=== PATIENT | male | born 1995 | race Caucasian/White ===

== ENCOUNTER 2018-01-27 | Emergency (ER) | payer OTHER, SELFPAY ==
--- NOTE | 2018-01-27 12:39 | ER ---
Nurse's Notes [facility] Name: Fidel Sy Age: 22 yrs Sex: Male : 1995 Arrival Date: 01/27/2018 Time: 12:22 Bed 8 Private MD: Diagnosis: Anxiety disorder, unspecified;Depression Presentation: 01/27 12:25 Presenting complaint: Patient states: Patient reports feeling suicidal when he was aj arrested this AM. Patient was released from [facility] and transported to this facility. Currently denies suicidal or homicidal ideation. Patient denies urge to harm himself or others. Stated, "I feel better since they let me out of [facility].". Transition of care: patient was not received from another setting of care. Onset of symptoms was January 27, 2018. Care prior to arrival: None. 12:25 Method Of Arrival: EMS: [facility] aj 12:25 Acuity: NIKA 2 aj Triage Assessment: 12:27 General: Appears in no apparent distress. comfortable, Behavior is calm, cooperative, aj appropriate for age. Pain: Denies pain. Neuro: Level of Consciousness is awake, alert, obeys commands, Oriented to person, place, time, situation. Respiratory: Airway is patent Trachea midline Respiratory effort is even, unlabored, Respiratory pattern is regular, symmetrical. Derm: Skin is intact, is healthy with good turgor, Skin is pink, warm \\T\\ dry. normal. Historical: - Allergies: 12:27 No Known Allergies; aj - Home Meds: 12:27 unknown muscle relaxer [Active]; aj - PMHx: 12:27 Atrial Fib; Back pain; Ulcers; aj - PSHx: 12:27 Right hand surgery; aj - Immunization history:: Adult Immunizations unknown. - Social history:: Smoking status: Patient uses tobacco products, smokes one-half pack cigarettes per day, smokes one pack cigarettes per day. Screenin:46 Abuse screen: Denies threats or abuse. Denies injuries from another. Nutritional ss screening: No deficits noted. Tuberculosis screening: Never had TB. Fall Risk None identified. Assessment: 12:46 Reassessment: Patient appears in no apparent distress at this time. Family at bedside, ss pt denies suicidal/ homicidal ideations at this time. Neuro: Level of Consciousness is awake, alert. Respiratory: Airway is patent Respiratory effort is even, unlabored, Respiratory pattern is regular, symmetrical. Psych: 12:29 Subjective: Patient's mood is sad, Delusions are denied, Hallucinations are denied aj Having thoughts of Denies suicidal or homicidal ideations at this time. Objective: Patient is cooperative, Speech is normal, Affect is appropriate. Vital Signs: 12:27 BP 131 / 74; Pulse 80; Resp 17; Temp 98.2; Pulse Ox 98% on R/A; Weight 52.16 kg; Height aj 5 ft. 6 in. (167.64 cm); Pain 0/10; 12:27 Body Mass Index 18.56 (52.16 kg, 167.64 cm) ED Course: 12:22 Patient arrived in ED. ss 12:24 Jhon Jennings PA is PHCP. jr8 12:24 Raymond Ott MD is Attending Physician. jr8 12:25 Candida Qureshi, RN is Primary Nurse. aj 12:27 Triage completed. aj 12:27 Arm band placed on left wrist. Patient placed in an exam room, on a stretcher. aj 12:30 Valentine Rocha, RN is Primary Nurse. aj1 12:46 Patient has correct armband on for positive identification. Bed in low position. ss 12:46 No provider procedures requiring assistance completed. Patient did not have IV access ss during this emergency room visit. Administered Medications: No medications were administered Outcome: 12:38 Discharge ordered by . jr8 12:46 Discharged to home ambulatory, with family. ss 12:46 Condition: good 12:46 Discharge instructions given to patient, Instructed on discharge instructions, follow up and referral plans. medication usage, Demonstrated understanding of instructions, follow-up care, medications. 12:49 Patient left the ED. ss Signatures: Valentine Rocha, RN RN aj1 Candida Qureshi RN RN aj Ana Amaya RN RN Jhon Jennings PA PA jr8
--- NOTE | 2018-01-27 12:39 | EDPHYS ---
Physician Documentation [facility] Name: Fidel Sy Age: 22 yrs Sex: Male : 1995 Arrival Date: 01/27/2018 Time: 12:22 Bed 8 Private MD: ED Physician Raymond Ott HPI: 01/27 12:32 This 22 yrs old Male presents to ER via EMS with complaints of anxiety. jr8 12:32 The patient presents to the emergency department with anxiety. Onset: The jr8 symptoms/episode began/occurred acutely, today. Associated signs and symptoms: The patient has no apparent associated signs or symptoms. Severity of symptoms: At their worst the symptoms were mild in the emergency department the symptoms are unchanged. The patient has not experienced similar symptoms in the past. The patient has not recently seen a physician. Patient stated that he was arrested for warrants today. Stated that he has been having marital problems and has been trying to work on that. Due to his current ongoing problems felt that he hit an all time low and was worried that if he were to go to shelter would just give up on everything. EMS was called out after he said he would rather kill himself then be put in shelter. [facility] decided to release patient for evaluation. Patient was then brought to ED. Patient denies wanting to kill himself. Stated that he said that because he was at a low point and did not know what he would do if he lost his , child, and went to shelter . Historical: - Allergies: 12:27 No Known Allergies; aj - Home Meds: 12:27 unknown muscle relaxer [Active]; aj - PMHx: 12:27 Atrial Fib; Back pain; Ulcers; - PSHx: 12:27 Right hand surgery; aj - Immunization history:: Adult Immunizations unknown. - Social history:: Smoking status: Patient uses tobacco products, smokes one-half pack cigarettes per day, smokes one pack cigarettes per day. ROS: 12:32 Eyes: Negative for injury, pain, redness, and discharge, ENT: Negative for injury, jr8 pain, and discharge, Neck: Negative for injury, pain, and swelling, Cardiovascular: Negative for chest pain, palpitations, and edema, Respiratory: Negative for shortness of breath, cough, wheezing, and pleuritic chest pain, Abdomen/GI: Negative for abdominal pain, nausea, vomiting, diarrhea, and constipation, Back: Negative for injury and pain, MS/Extremity: Negative for injury and deformity, Skin: Negative for injury, rash, and discoloration, Neuro: Negative for headache, weakness, numbness, tingling, and seizure. 12:32 Psych: Positive for anxiety, depression. Exam: 12:32 Head/Face: Normocephalic, atraumatic. Eyes: Pupils equal round and reactive to light, jr8 extra-ocular motions intact. Lids and lashes normal. Conjunctiva and sclera are non-icteric and not injected. Cornea within normal limits. Periorbital areas with no swelling, redness, or edema. ENT: Nares patent. No nasal discharge, no septal abnormalities noted. Tympanic membranes are normal and external auditory canals are clear. Oropharynx with no redness, swelling, or masses, exudates, or evidence of obstruction, uvula midline. Mucous membranes moist. Neck: Trachea midline, no thyromegaly or masses palpated, and no cervical lymphadenopathy. Supple, full range of motion without nuchal rigidity, or vertebral point tenderness. No Meningismus. Cardiovascular: Regular rate and rhythm with a normal S1 and S2. No gallops, murmurs, or rubs. Normal PMI, no JVD. No pulse deficits. Respiratory: Lungs have equal breath sounds bilaterally, clear to auscultation and percussion. No rales, rhonchi or wheezes noted. No increased work of breathing, no retractions or nasal flaring. Abdomen/GI: Soft, non-tender, with normal bowel sounds. No distension or tympany. No guarding or rebound. No evidence of tenderness throughout. Back: No spinal tenderness. No costovertebral tenderness. Full range of motion. Skin: Warm, dry with normal turgor. Normal color with no rashes, no lesions, and no evidence of cellulitis. MS/ Extremity: Pulses equal, no cyanosis. Neurovascular intact. Full, normal range of motion. Neuro: Awake and alert, GCS 15, oriented to person, place, time, and situation. Cranial nerves II-XII grossly intact. Motor strength 5/5 in all extremities. Sensory grossly intact. Cerebellar exam normal. Normal gait. 12:32 Psych: Behavior/mood is cooperative, anxious, Affect is calm, Oriented to person, place, time, Patient has no thoughts/intents to harm self or others. Judgement / Insight is normal. Memory is normal. Delusions/hallucinations are not present. Vital Signs: 12:27 BP 131 / 74; Pulse 80; Resp 17; Temp 98.2; Pulse Ox 98% on R/A; Weight 52.16 kg; Height aj 5 ft. 6 in. (167.64 cm); Pain 0/10; 12:27 Body Mass Index 18.56 (52.16 kg, 167.64 cm) aj MDM: 12:24 Patient medically screened. jr8 12:32 Data reviewed: vital signs, nurses notes, and as a result, I will discharge patient. jr8 Data interpreted: Pulse oximetry: on room air is 98 %. Interpretation: normal. Counseling: I had a detailed discussion with the patient and/or guardian regarding: the historical points, exam findings, and any diagnostic results supporting the discharge/admit diagnosis, the need for outpatient follow up, a family practitioner, to return to the emergency department if symptoms worsen or persist or if there are any questions or concerns that arise at home. ED course: Patient denies wanting to kill himself. Stated that it would be the worse thing to do to himself and that his other siblings committed suicide and that he could not do that to his mom or his or child. Stated that he just wants to go home and get his life straight again . Administered Medications: No medications were administered Disposition: 01/28 07:14 Co-signature as Attending Physician, Raymond Ott MD. ma2 Disposition: 01/27/18 12:38 Discharged to Home. Impression: Anxiety disorder, unspecified, Depression . - Condition is Stable. - Discharge Instructions: Panic Attacks, Depression, Adult. - Medication Reconciliation Form, Thank You Letter, Antibiotic Education, Prescription Opioid Use form. - Follow up: Private Physician; When: 1 - 2 days; Reason: Recheck today's complaints, Continuance of care, Re-evaluation by your physician. - Problem is new. - Symptoms have improved. Signatures: Candida Qureshi RN RN aj Smirch, Shelby, RN RN ss Roszak, Josh, PA PA jr8 Raymond Ott MD MD ma2
== END 2018-01-27 12:49 | disposition home or self-care (01) ==
CPT/HCPCS: 99283

== ENCOUNTER 2018-02-03 18:36 | Emergency (ER) | payer SELFPAY ==
[2018-02-03 19:10] LABS: Absolute Lymphocytes (CBC) 2.9 K/uL (0.7-4.9); Absolute Monocytes 0.8 K/uL (0.1-1.3); Absolute Neutrophil 2.7 K/uL (1.8-8.0); Basophils % 0.9 % (0-1.3); Eosinophils % 3.4 % (0-4.4); Hematocrit 43.5 % (39.6-49.0); Lymphocytes % 43.3 % (15.3-44.8); MCH 30.6 pg (27.0-35.0); MPV 10.2 fL (7.6-11.3); Monocytes % 11.7 % (3.3-12.3); RBC Red Blood Cell Count 4.68 M/uL (4.33-5.43)
[2018-02-03 19:28] LABS: Potassium 3.5 mEq/L (3.6-5.0)
[2018-02-03 19:35] LABS: Albumin 4.9 g/dL (3.2-5.5); Bilirubin Direct 0.2 mg/dL (0-0.2); Bilirubin Total 0.8 mg/dL (0.3-1.2); Magnesium 2.2 mg/dL (1.8-2.5); Protein, Total 7.5 g/dL (6.0-8.3)
[2018-02-03 19:38] LABS: Protime INR 1.08
[2018-02-03] MEDS ORDERED: ONDANSETRON 4 MG/2 ML VIAL ONE (19:40)
[2018-02-03] MEDS ORDERED: DIPHENHYDRAMINE 50 MG/ML VIAL ONE (19:40)
[2018-02-03] MEDS ORDERED: PANTOPRAZOLE 40 MG INJ ONE (19:40)
[2018-02-03] MEDS ORDERED: NA CHLORIDE 0.9% 1,000 ML ONE (19:40)
[2018-02-03 19:56] LABS: Barbiturates NEGATIVE; Benzodiazepines NEGATIVE; Cocaine NEGATIVE; Opiates NEGATIVE; Phencyclidine NEGATIVE; THC Cannibis POSITIVE
[2018-02-03 19:57] LABS: METHAMPHETAM POSITIVE
[2018-02-03] MEDS ORDERED: POTASSIUM 25 MEQ EFFERV TAB ONE (20:50)
[2018-02-03] MEDS ORDERED: ACETAMINOPHEN 500 MG TAB ONE (20:55)
[2018-02-03] MEDS ORDERED: ASPIRIN 81 MG CHEWABLE TABLET ONE (20:55)
--- NOTE | 2018-02-03 21:27 | RAD REPORT ---
EXAM DESCRIPTION: [facility] Single View02/03/2018 8:12 pm CLINICAL HISTORY: Chest pain COMPARISON: 2016 FINDINGS: The lungs appear clear of acute infiltrate. The heart is normal size IMPRESSION: No acute abnormalities displayed
--- NOTE | 2018-02-03 22:11 | ER ---
Nurse's Notes [facility] Name: Fidel Sy Age: 22 yrs Sex: Male : 1995 Arrival Date: 02/03/2018 Time: 18:38 Bed 15 Private MD: Diagnosis: Chest pain, unspecified;Adverse effect of amphetamines Presentation: 02/03 18:41 Presenting complaint: Patient states: I have a pain like someone is stabbing my chest la1 and in now my left shoulder and arm, it has been getting worse over the course of the last couple days. Transition of care: patient was not received from another setting of care. Onset of symptoms was February 03, 2018. Care prior to arrival: None. 18:41 Method Of Arrival: Ambulatory la1 18:41 Acuity: NIKA 3 la1 Historical: - Allergies: 18:43 No Known Allergies; la1 - PMHx: 18:43 Atrial Fib; Back pain; Ulcers; la1 - Immunization history:: Adult Immunizations up to date. - Social history:: Smoking status: Patient uses tobacco products, smokes one pack cigarettes per day. Screenin:05 Abuse screen: Denies threats or abuse. Denies injuries from another. Nutritional aa1 screening: No deficits noted. Tuberculosis screening: No symptoms or risk factors identified. Fall Risk None identified. Assessment: 19:05 General: Appears in no apparent distress. uncomfortable, slender, Behavior is calm, aa1 cooperative, appropriate for age. Pain: Complains of pain in chest Pain does not radiate. Pain currently is 10 out of 10 on a pain scale. Quality of pain is described as stabbing, Pain began 2-3 days ago. Neuro: Level of Consciousness is awake, alert, obeys commands, Oriented to person, place, time, situation, Moves all extremities. Speech is normal, Facial symmetry appears normal, Reports paresthesias in face, right arm and left arm. Cardiovascular: Reports chest pain, Denies nausea, palpitations, shortness of breath, Heart tones S1 S2 present Capillary refill < 3 seconds Clubbing of nail beds is absent Patient's skin is warm and dry. Rhythm is regular Chest pain is described as severe, quality is stabbing, is located in substernal area. Respiratory: Airway is patent Respiratory effort is even, unlabored, Respiratory pattern is regular, symmetrical. GI: No signs and/or symptoms were reported involving the gastrointestinal system. : No signs and/or symptoms were reported regarding the genitourinary system. EENT: No signs and/or symptoms were reported regarding the EENT system. Derm: Skin is intact, is healthy with good turgor, Skin is pink, warm \T\ dry. Musculoskeletal: Circulation, motion, and sensation intact. Capillary refill < 3 seconds. 19:58 Reassessment: Patient appears in no apparent distress at this time. Patient and/or aa1 family updated on plan of care and expected duration. Pain level reassessed. Patient is alert, oriented x 3, equal unlabored respirations, skin warm/dry/pink. Awaiting provider reassessment. 20:40 Reassessment: Patient appears in no apparent distress at this time. Patient and/or aa1 family updated on plan of care and expected duration. Pain level reassessed. Patient is alert, oriented x 3, equal unlabored respirations, skin warm/dry/pink. Per PA will monitor pt and repeat cardiac enzymes prior to d/c. 21:26 Reassessment: Patient appears in no apparent distress at this time. Patient and/or aa1 family updated on plan of care and expected duration. Pain level reassessed. Patient is alert, oriented x 3, equal unlabored respirations, skin warm/dry/pink. Repeat troponin sent. 22:23 Reassessment: Patient appears in no apparent distress at this time. Patient is alert, aa1 oriented x 3, equal unlabored respirations, skin warm/dry/pink. Discussed d/c \T\ f/u instructions with pt; denies questions or concerns at this time Patient states feeling better. Patient states symptoms have improved. Vital Signs: 18:42 BP 122 / 83; Pulse 115; Resp 20; Temp 98.2(TE); Pulse Ox 100% on R/A; Weight 56.7 kg; la1 Height 5 ft. 7 in. (170.18 cm); 19:19 BP 144 / 87; Pulse 89; Resp 16; Pulse Ox 100% on R/A; aa1 19:58 BP 128 / 85; Pulse 77; Resp 14; Pulse Ox 100% on R/A; aa1 21:26 BP 119 / 82; Pulse 84; Resp 14; Pulse Ox 100% on R/A; aa1 22:23 BP 126 / 86; Pulse 79; Resp 16; Temp 98.2; Pulse Ox 100% on R/A; Pain 5/10; aa1 18:42 Body Mass Index 19.58 (56.70 kg, 170.18 cm) la1 ED Course: 18:38 Patient arrived in ED. as 18:42 Triage completed. la1 18:42 Arm band placed on left wrist. la1 18:43 [facility] cp 18:43 Deshawn Robles MD is Attending Physician. cp 19:01 Inserted saline lock: 20 gauge in right forearm, using aseptic technique. Blood ss collected. 19:05 Patient has correct armband on for positive identification. Bed in low position. Call aa1 light in reach. youth nutritional monitor on. Pulse ox on. NIBP on. 19:05 Patient maintains SpO2 saturation greater than 95% on room air. aa1 19:06 EKG done, by ED staff, reviewed by Jordi HARVEY. dh3 19:08 Dave Mora MD is Attending Physician. cp 19:12 X-ray completed. Portable x-ray completed in exam room. Patient tolerated procedure ag1 well. 19:18 Asha Hou, RN is Primary Nurse. aa1 19:44 UDS Sent. aa1 21:20 Repeat lab(s) drawn. by me, sent to lab. aa1 22:10 Robb Sosa MD is Referral Physician. cp 22:23 No provider procedures requiring assistance completed. IV discontinued, intact, aa1 bleeding controlled, No redness/swelling at site. Pressure dressing applied. Administered Medications: 19:35 Drug: NS 0.9% 1000 ml Route: IV; Rate: 1 bolus; Site: right antecubital; aa1 21:00 Follow up: IV Status: Completed infusion aa1 19:35 Drug: ProTONIX 40 mg Route: IVP; Site: right antecubital; aa1 20:39 Follow up: Response: No adverse reaction; No change in condition aa1 19:37 Drug: Zofran 4 mg Route: IVP; Site: right antecubital; aa1 20:39 Follow up: Response: No adverse reaction; No change in condition; No change in aa1 condition; denies nausea 19:39 Drug: Benadryl 25 mg Route: IVP; Site: right antecubital; aa1 20:40 Follow up: Response: No adverse reaction; No change in condition aa1 20:38 Drug: Potassium Effervescent Tablet 25 mEq Route: PO; aa1 22:15 Follow up: Response: No adverse reaction; Pain is decreased aa1 20:38 Drug: Tylenol 1000 mg Route: PO; aa1 22:15 Follow up: Response: No adverse reaction; Pain is decreased aa1 20:39 Drug: Aspirin Chewable Tablet 324 mg Route: PO; aa1 22:14 Follow up: Response: No adverse reaction aa1 Outcome: 22:11 Discharge ordered by MD. cp 22:25 Discharged to home ambulatory, with significant other. aa1 22:25 Condition: good 22:25 Discharge instructions given to patient, significant other, Instructed on discharge instructions, follow up and referral plans. medication usage, Demonstrated understanding of instructions, follow-up care, medications, Prescriptions given X 2. 22:26 Patient left the ED. aa1 Signatures: Asha Hou RN RN aa1 Betsy De La Rosa Shelby, RN RN Raji Rowe RN RN la1 Ema Cruz Corey, PA PA Hansa Chance 3
--- NOTE | 2018-02-03 22:11 | EDPHYS ---
Physician Documentation [facility] Name: Fidel Sy Age: 22 yrs Sex: Male : 1995 Arrival Date: 02/03/2018 Time: 18:38 Bed 15 Private MD: ED Physician Dave Mora HPI: 02/03 18:57 This 22 yrs old Male presents to ER via Ambulatory with complaints of Chest cp Pain, Arm Pain. Historical: - Allergies: 18:43 No Known Allergies; la1 - PMHx: 18:43 Atrial Fib; Back pain; Ulcers; la1 - Immunization history:: Adult Immunizations up to date. - Social history:: Smoking status: Patient uses tobacco products, smokes one pack cigarettes per day. ROS: 19:05 Constitutional: Negative for body aches, chills, fever, poor PO intake. cp 19:05 Eyes: Negative for injury, pain, redness, and discharge. cp 19:05 ENT: Negative for drainage from ear(s), ear pain, sore throat, difficulty swallowing, difficulty handling secretions. 19:05 Neck: Negative for pain with movement, pain at rest, stiffness. 19:05 Cardiovascular: Negative for chest pain, edema, palpitations. 19:05 Respiratory: Negative for cough, shortness of breath, wheezing. 19:05 Abdomen/GI: Negative for abdominal pain, nausea and vomiting, nausea, vomiting, and diarrhea, constipation, anorexia, black/tarry stool, rectal bleeding. 19:05 Back: Negative for pain at rest, pain with movement, radiated pain. 19:05 : Negative for urinary symptoms. 19:05 Skin: Negative for cellulitis, rash. 19:05 Neuro: Negative for altered mental status, headache, weakness. 19:05 All other systems are negative. Exam: 19:11 Constitutional: The patient appears alert, awake, non-diaphoretic, non-toxic, well cp developed, well nourished, uncomfortable. 19:11 Head/Face: Normocephalic, atraumatic. Eyes: Pupils equal round and reactive to light, cp extra-ocular motions intact. Lids and lashes normal. Conjunctiva and sclera are non-icteric and not injected. Cornea within normal limits. Periorbital areas with no swelling, redness, or edema. ENT: Nares patent. No nasal discharge, no septal abnormalities noted. Tympanic membranes are normal and external auditory canals are clear. Oropharynx with no redness, swelling, or masses, exudates, or evidence of obstruction, uvula midline. Mucous membranes moist. Neck: Trachea midline, no thyromegaly or masses palpated, and no cervical lymphadenopathy. Supple, full range of motion without nuchal rigidity, or vertebral point tenderness. No Meningismus. Chest/axilla: Normal chest wall appearance and motion. Nontender with no deformity. No lesions are appreciated. 19:11 Cardiovascular: Rate: tachycardic, Rhythm: regular, Pulses: Pulses are 2+ in right radial artery and left radial artery. Edema: is not appreciated, JVD: is not appreciated. 19:11 Respiratory: the patient does not display signs of respiratory distress, Respirations: normal, no use of accessory muscles, no retractions, no splinting, no tachypnea, labored breathing, is not present, Breath sounds: are clear throughout, no decreased breath sounds, no stridor, no wheezing. 19:11 Abdomen/GI: Inspection: abdomen appears normal, Bowel sounds: active, all quadrants, Palpation: soft, in all quadrants, mild abdominal tenderness, in the epigastric area, rebound tenderness, is not appreciated, voluntary guarding, is not appreciated, involuntary guarding, is not appreciated. 19:11 Back: pain, is absent, ROM is normal. 19:11 Skin: cellulitis, is not appreciated, no rash present. 19:11 Neuro: Orientation: to person, place \T\ time. Mentation: is normal, Cerebellar function: is grossly normal, Motor: moves all fours, strength is normal, Sensation: no obvious gross deficits. 19:13 ECG was reviewed by the Attending Physician. 22:05 ECG was reviewed by the Attending Physician. cp Vital Signs: 18:42 BP 122 / 83; Pulse 115; Resp 20; Temp 98.2(TE); Pulse Ox 100% on R/A; Weight 56.7 kg; la1 Height 5 ft. 7 in. (170.18 cm); 19:19 BP 144 / 87; Pulse 89; Resp 16; Pulse Ox 100% on R/A; aa1 19:58 BP 128 / 85; Pulse 77; Resp 14; Pulse Ox 100% on R/A; aa1 21:26 BP 119 / 82; Pulse 84; Resp 14; Pulse Ox 100% on R/A; aa1 22:23 BP 126 / 86; Pulse 79; Resp 16; Temp 98.2; Pulse Ox 100% on R/A; Pain 5/10; aa1 18:42 Body Mass Index 19.58 (56.70 kg, 170.18 cm) la1 MDM: 18:45 Patient medically screened. cp 22:12 Data reviewed: vital signs, nurses notes, lab test result(s), EKG, radiologic studies, cp plain films, and as a result, I will discharge patient. 22:12 Special discussion: Based on the patient's history, exam, and Dx evaluation, there is cp no indication for emergent intervention or inpatient Tx. It is understood by the patient/guardian that if the Sx's persist or worsen they need to return immediately for re-evaluation. 02/03 18:55 Order name: Basic Metabolic Panel cp 02/03 18:55 Order name: BNP cp 02/03 18:55 Order name: CBC with Diff cp 02/03 18:55 Order name: Ckmb cp 02/03 18:55 Order name: CPK cp 02/03 18:55 Order name: LFT's cp 02/03 18:55 Order name: Magnesium cp 02/03 18:55 Order name: PT-INR cp 02/03 18:55 Order name: Ptt, Activated cp 02/03 18:55 Order name: Troponin (emerg Dept Use Only) cp 02/03 18:55 Order name: Lipase cp 02/03 18:55 Order name: D-Dimer cp 02/03 18:55 Order name: UDS cp 02/03 19:27 Order name: CBC with Automated Diff; Complete Time: 20:21 EDMS 02/03 20:21 Interpretation: Normal except: ANTONIO% 40.7. cp 02/03 18:55 Order name: XRAY Chest (1 view) cp 02/03 19:29 Order name: Basic Metabolic Panel; Complete Time: 20:21 EDMS 02/03 20:22 Interpretation: Normal except: K 3.5; GFR 88. cp 02/03 19:29 Order name: Lipase; Complete Time: 20:21 EDMS 02/03 20:23 Interpretation: LIP 13; Reviewed. cp 02/03 19:34 Order name: Troponin (Emerg Dept Use Only); Complete Time: 20:21 EDMS 02/03 20:25 Interpretation: Reviewed. cp 02/03 19:35 Order name: Liver (Hepatic) Function; Complete Time: 20:21 EDMS 02/03 20:24 Interpretation: Normal except: A/G 1.9. cp 02/03 19:35 Order name: Creatine Phosphokinase; Complete Time: 20:21 EDMS 02/03 19:35 Order name: Magnesium; Complete Time: 20:21 EDMS 02/03 19:38 Order name: CKMB Creatine Kinase MB; Complete Time: 20:21 EDMS 02/03 19:39 Order name: Protime (+INR); Complete Time: 20:21 EDMS 02/03 19:39 Order name: PTT, Activated Partial Thromb; Complete Time: 20:21 EDMS 02/03 19:39 Order name: D-Dimer; Complete Time: 20:21 EDMS 02/03 19:58 Order name: Urine Drug Screen; Complete Time: 20:21 EDMS 02/03 20:24 Interpretation: Normal except: AMP POSITIVE; THC POSITIVE. cp 02/03 20:28 Order name: BNP B-Type Natriuretic Peptide; Complete Time: 20:30 EDMS 02/03 20:31 Interpretation: Report reviewed. cp 02/03 21:20 Order name: Troponin (emerg Dept Use Only) 02/03 21:54 Order name: Troponin (Emerg Dept Use Only); Complete Time: 22:12 EDMS 02/03 22:12 Interpretation: TROPED < 0.03; Reviewed. cp 02/03 18:45 Order name: EKG; Complete Time: 18:46 cp 02/03 18:45 Order name: EKG - Nurse/Tech; Complete Time: 19:06 cp 02/03 18:55 Order name: Cardiac monitoring; Complete Time: 19:19 cp 02/03 18:55 Order name: IV Saline Lock; Complete Time: 19:19 cp 02/03 18:55 Order name: Labs collected and sent; Complete Time: 19:19 cp 02/03 18:55 Order name: O2 Per Protocol; Complete Time: 19:19 cp 02/03 18:55 Order name: O2 Sat Monitoring; Complete Time: 19:19 cp 02/03 21:28 Order name: RAD; Complete Time: 21:51 EDMS 02/03 21:51 Interpretation: Report reviewed. cp 02/03 21:54 Order name: EKG - Nurse/Tech; Complete Time: 22:13 cp 02/03 21:54 Order name: EKG; Complete Time: 21:55 cp EC:13 Rate is 111 beats/min. Rhythm is regular. KS interval is normal. QRS interval is cp normal. QT interval is normal. No ST changes noted. Interpreted by me. Reviewed by me. 22:05 Rate is 95 beats/min. Rhythm is regular. KS interval is normal. QRS interval is normal. cp QT interval is normal. No ST changes noted. Interpreted by me. Reviewed by me. Administered Medications: 19:35 Drug: NS 0.9% 1000 ml Route: IV; Rate: 1 bolus; Site: right antecubital; aa1 21:00 Follow up: IV Status: Completed infusion aa1 19:35 Drug: ProTONIX 40 mg Route: IVP; Site: right antecubital; aa1 20:39 Follow up: Response: No adverse reaction; No change in condition aa1 19:37 Drug: Zofran 4 mg Route: IVP; Site: right antecubital; aa1 20:39 Follow up: Response: No adverse reaction; No change in condition; No change in aa1 condition; denies nausea 19:39 Drug: Benadryl 25 mg Route: IVP; Site: right antecubital; aa1 20:40 Follow up: Response: No adverse reaction; No change in condition aa1 20:38 Drug: Potassium Effervescent Tablet 25 mEq Route: PO; aa1 22:15 Follow up: Response: No adverse reaction; Pain is decreased aa1 20:38 Drug: Tylenol 1000 mg Route: PO; aa1 22:15 Follow up: Response: No adverse reaction; Pain is decreased aa1 20:39 Drug: Aspirin Chewable Tablet 324 mg Route: PO; aa1 22:14 Follow up: Response: No adverse reaction aa1 Disposition: 02/03/18 22:11 Discharged to Home. Impression: Chest pain, unspecified, Adverse effect of amphetamines. - Condition is Stable. - Discharge Instructions: Stimulant Use Disorder-Amphetamines, Nonspecific Chest Pain, Marijuana Abuse-Brief, Aspirin and Your Heart. - Prescriptions for Ibuprofen 800 mg Oral Tablet - take 1 tablet by ORAL route every 8 hours As needed take with food; 30 tablet. Zofran 4 mg Oral Tablet - take 1 tablet by ORAL route every 12 hours As needed; 20 tablet. - Medication Reconciliation Form, Thank You Letter, Antibiotic Education, Prescription Opioid Use form. - Follow up: Robb Sosa MD; When: 2 - 3 days; Reason: chest pain. - Problem is new. - Symptoms have improved. Addendum: 02/07/2018 07:07 Co-signature as Attending Physician, Dave Mora MD I agree with the assessment and w a plan of care. Signatures: Dispatcher [employer] EDMS Asha Hou RN RN aa1 Raji Rowe RN RN la1 Jordi Bolanos, PA PA atnia Mora, MD MD dino Acosta Corrections: (The following items were deleted from the chart) 02/03 22:13 21:54 Repeat Cardiac Enzymes at ordered. aa1 22:16 18:55 Urine Dipstick-Ancillary ordered. cp aa1
[2018-02-03 22:32] VITALS: TEMP 98.2; O2SAT 100
[2018-02-03 22:36] VITALS: BP 126/86
--- NOTE | 2018-02-04 07:22 | EKG ---
Test Date: 2018-02-03 Test Time: 22:01:59 Licensed Weigher: [employer] MEASUREMENT RESULTS: Intervals: Rate: 95 IN: 136 QRSD: 92 QT: 354 QTc: 444 [place]: P: 81 IN: 136 QRS: 86 T: 76 INTERPRETIVE STATEMENTS: Normal sinus rhythm Possible Left atrial enlargement Incomplete right bundle branch block Borderline ECG Compared to ECG 02/03/2018 19:00:08 Sinus tachycardia no longer present Electronically Signed On 02-04-18 07:21:31 CDT by Robb Sosa
--- NOTE | 2018-02-04 07:23 | EKG ---
Test Date: 2018-02-03 Test Time: 19:00:08 Fee Clerk: MERA MEASUREMENT RESULTS: Intervals: Rate: 111 SC: 136 QRSD: 92 QT: 326 QTc: 443 [place]: P: 74 SC: 136 QRS: 85 T: 66 INTERPRETIVE STATEMENTS: Sinus tachycardia Possible Left atrial enlargement Incomplete right bundle branch block Borderline ECG Compared to ECG 08/22/2017 11:38:37 Incomplete right bundle-branch block now present Sinus bradycardia no longer present Electronically Signed On 02-04-18 07:21:47 CDT by Robb Sosa
== END 2018-02-03 22:26 | disposition home or self-care (01) ==
LOC: ER 18:36
DX: T43.625A Adverse effect of amphetamines, initial encounter (principal); F17.210 Nicotine dependence, cigarettes, uncomplicated
CPT/HCPCS: 36415; 71045; 80048; 80076; 80307; 82550; 82553; 83690; 83735; 83880; 84484; 85025; 85379; 85610; 85730; 93005; 96361; 96374; 96375; 99285; C9113; J2405; J7030

== ENCOUNTER 2018-06-04 23:40 | Emergency (ER) | payer SELFPAY ==
--- NOTE | 2018-06-05 01:37 | EDPHYS ---
Physician Documentation [facility] Name: Fidel Sy Age: 22 yrs Sex: Male : 1995 Arrival Date: 06/04/2018 Time: 23:41 Bed 7 Private MD: ED Physician Tonio Denise HPI: 06/05 01:25 This 22 yrs old Male presents to ER via Ambulatory with complaints of Neck gs and Upper Back Pain, Shoulder Pain. 01:25 The patient or guardian complains of an injury, pain. The symptoms are located at the gs C4 and C5. Onset: The symptoms/episode began/occurred acutely, just prior to arrival. Context: The problem was sustained at home, The neck injury/problem resulted from WRESTLING WITH FRIEND. Associated signs and symptoms: Pertinent negatives: bladder incontinence, bowel incontinence, numbness. The pain does not radiate. Modifying factors: the symptoms are aggravated by movement. Severity of symptoms: At their worst the symptoms were moderate, in the emergency department the symptoms are unchanged. The patient has not experienced similar symptoms in the past. Historical: - Allergies: 00:00 No Known Allergies; bb - Home Meds: 00:00 None [Active]; bb - PMHx: 00:00 None; bb - PSHx: 00:00 cyst removal right hand; bb - Immunization history:: Adult Immunizations up to date. - Social history:: Smoking status: Patient uses tobacco products, smokes one-half pack cigarettes per day, Patient/guardian denies using alcohol, street drugs. - Ebola Screening: : No symptoms or risks identified at this time. ROS: 01:25 All other systems are negative. gs Exam: 01:25 Head/Face: Normocephalic, atraumatic. Eyes: Pupils equal round and reactive to light, gs extra-ocular motions intact. Lids and lashes normal. Conjunctiva and sclera are non-icteric and not injected. Cornea within normal limits. Periorbital areas with no swelling, redness, or edema. ENT: Nares patent. No nasal discharge, no septal abnormalities noted. Tympanic membranes are normal and external auditory canals are clear. Oropharynx with no redness, swelling, or masses, exudates, or evidence of obstruction, uvula midline. Mucous membranes moist. Chest/axilla: Normal chest wall appearance and motion. Nontender with no deformity. No lesions are appreciated. Cardiovascular: Regular rate and rhythm with a normal S1 and S2. No gallops, murmurs, or rubs. Normal PMI, no JVD. No pulse deficits. Respiratory: Lungs have equal breath sounds bilaterally, clear to auscultation and percussion. No rales, rhonchi or wheezes noted. No increased work of breathing, no retractions or nasal flaring. Abdomen/GI: Soft, non-tender, with normal bowel sounds. No distension or tympany. No guarding or rebound. No evidence of tenderness throughout. Back: No spinal tenderness. No costovertebral tenderness. Full range of motion. Skin: Warm, dry with normal turgor. Normal color with no rashes, no lesions, and no evidence of cellulitis. Neuro: Awake and alert, GCS 15, oriented to person, place, time, and situation. Cranial nerves II-XII grossly intact. Motor strength 5/5 in all extremities. Sensory grossly intact. Cerebellar exam normal. Normal gait. 01:25 Constitutional: The patient appears alert, awake. 01:25 Neck: External neck: tenderness, that is mild, C-spine: vertebral tenderness, that is mild, appreciated at C4 and C5, ROM/movement: pain, that is mild, with rotation to the left, nuchal rigidity, is not appreciated. 01:25 Musculoskeletal/extremity: ROM: intact in all extremities, Circulation is intact in all extremities. Joints: the left shoulder displays NO POINT TENDERNESS, FULL ROM. Vital Signs: 00:00 BP 145 / 84; Pulse 93; Resp 18 S; Temp 98.6(O); Pulse Ox 100% on R/A; Weight 61.23 kg bb (R); Height 5 ft. 6 in. (167.64 cm) (R); Pain 8/10; 00:15 BP 123 / 58; Pulse 72; Resp 14; Pulse Ox 99% ; bp 01:30 BP 112 / 69; Pulse 63; Resp 14; Pulse Ox 99% ; bp 00:00 Body Mass Index 21.79 (61.23 kg, 167.64 cm) bb MDM: 06/04 23:54 Patient medically screened. 06/05 01:25 Differential diagnosis: cervical strain, fracture, Whiplash Injury. Data reviewed: vital signs, nurses notes. Response to treatment: the patient's symptoms have mildly improved after treatment, and as a result, I will discharge patient. 06/04 23:56 Order name: CT C Spine gs Administered Medications: No medications were administered Disposition: 06/05/18 01:37 Discharged to Home. Impression: Sprain of ligaments of cervical spine. - Condition is Stable. - Discharge Instructions: Cervical Sprain. - Prescriptions for Naprosyn 500 mg Oral Tablet - take 1 tablet by ORAL route 2 times per day As needed take with food; 30 tablet. - Medication Reconciliation Form, Thank You Letter, Antibiotic Education, Prescription Opioid Use form. - Follow up: Private Physician; When: 2 - 3 days; Reason: Re-evaluation by your physician. Signatures: Dispatcher [employer] EDMS Irene Almanzar RN RN Tonio Brooks MD MD gs Peltier, Brian, RN RN bp Corrections: (The following items were deleted from the chart) 01:46 01:37 06/05/2018 01:37 Discharged to Home. Impression: Sprain of ligaments of cervical bp spine. Condition is Stable. Forms are Medication Reconciliation Form, Thank You Letter, Antibiotic Education, Prescription Opioid Use. Follow up: Private Physician; When: 2 - 3 days; Reason: Re-evaluation by your physician. gs
--- NOTE | 2018-06-05 01:37 | ER ---
Nurse's Notes [facility] Name: Fidel Sy Age: 22 yrs Sex: Male : 1995 Arrival Date: 06/04/2018 Time: 23:41 Bed 7 Private MD: Diagnosis: Sprain of ligaments of cervical spine Presentation: 06/04 23:57 Presenting complaint: Patient states: he was wrestling around with his and rolled bb over then heard a loud pop in his neck at approx 1930 he is having neck pain radiating down his back and can only lemon picker his left arm partially. Transition of care: patient was not received from another setting of care. Onset of symptoms was June 04, 2018. Risk Assessment: Do you want to hurt yourself or someone else? Patient reports no desire to harm self or others. Initial Sepsis Screen: Does the patient meet any 2 criteria? No. Patient's initial sepsis screen is negative. Does the patient have a suspected source of infection? No. Patient's initial sepsis screen is negative. Care prior to arrival: None. 23:57 Method Of Arrival: Ambulatory 23:57 Acuity: NIKA 4 bb Historical: - Allergies: 06/05 00:00 No Known Allergies; bb - Home Meds: 00:00 None [Active]; bb - PMHx: 00:00 None; bb - PSHx: 00:00 cyst removal right hand; bb - Immunization history:: Adult Immunizations up to date. - Social history:: Smoking status: Patient uses tobacco products, smokes one-half pack cigarettes per day, Patient/guardian denies using alcohol, street drugs. - Ebola Screening: : No symptoms or risks identified at this time. Screenin:17 Abuse screen: Denies threats or abuse. Denies injuries from another. Nutritional bp screening: No deficits noted. Tuberculosis screening: No symptoms or risk factors identified. Fall Risk None identified. Assessment: 06/04 23:58 General: Appears in no apparent distress. Behavior is calm, cooperative. Pain: ak1 Complains of pain in back. Neuro: Level of Consciousness is awake, alert, obeys commands, Oriented to person, place, time, situation, Cutter Head Sharpener are equal bilaterally Moves all extremities. Gait is steady, Speech is normal. Cardiovascular: No deficits noted. Respiratory: No deficits noted. GI: No signs and/or symptoms were reported involving the gastrointestinal system. : No signs and/or symptoms were reported regarding the genitourinary system. EENT: No signs and/or symptoms were reported regarding the EENT system. Derm: No signs and/or symptoms reported regarding the dermatologic system. Musculoskeletal: Range of motion: intact in all extremities, Reports pain in back. 06/05 01:42 Reassessment: PT D/C HOME AMBULATORY WITH FAMILY, DX WITH CERVICAL SPRAIN. bp Vital Signs: 00:00 BP 145 / 84; Pulse 93; Resp 18 S; Temp 98.6(O); Pulse Ox 100% on R/A; Weight 61.23 kg bb (R); Height 5 ft. 6 in. (167.64 cm) (R); Pain 8/10; 00:15 BP 123 / 58; Pulse 72; Resp 14; Pulse Ox 99% ; bp 01:30 BP 112 / 69; Pulse 63; Resp 14; Pulse Ox 99% ; bp 00:00 Body Mass Index 21.79 (61.23 kg, 167.64 cm) bb ED Course: 06/04 23:41 Patient arrived in ED. ds1 23:47 Marychuy Araujo, ANNA is Primary Nurse. ak1 23:48 Tonio Denise MD is Attending Physician. gs 23:59 Triage completed. bb 06/05 00:00 Arm band placed on Patient placed in an exam room, on a stretcher, on pulse oximetry. bb Family accompanied patient. 00:17 Patient has correct armband on for positive identification. Bed in low position. Call bp light in reach. Side rails up X2. Adult w/ patient. 00:[address] via wheelchair. kw1 00:41 CT C Spine In Process Unspecified. EDMS 00:44 CT completed. Patient tolerated procedure well. Patient moved back from CT. kw1 01:43 No provider procedures requiring assistance completed. Patient did not have IV access bp during this emergency room visit. Administered Medications: No medications were administered Outcome: 01:37 Discharge ordered by MD. gs 01:43 Discharged to home ambulatory, with family. bp 01:43 Condition: stable 01:43 Discharge instructions given to patient, Instructed on discharge instructions, follow up and referral plans. medication usage, Demonstrated understanding of instructions, follow-up care, medications, Prescriptions given X 1. 01:46 Patient left the ED. bp Signatures: Dispatcher [employer] EDMS [place], Alicia ds1 Irene Almanzar RN RN bb Marychuy Araujo RN RN ak1 Tonio Denise MD MD gs Peltier, Brian, RN RN bp Darshana Rios 1
[2018-06-05 01:50] VITALS: TEMP 98.6
[2018-06-05 01:51] VITALS: O2SAT 99
[2018-06-05 01:52] VITALS: BP 112/69
--- NOTE | 2018-06-05 08:30 | RAD REPORT ---
EXAM DESCRIPTION: CT - C Spine Wo Con - 06/05/2018 4:44 am CLINICAL HISTORY: PAIN Trauma, neck injury COMPARISON: No comparisons FINDINGS: The cervical vertebral body heights and disc spaces are maintained. No evidence of acute cervical spine fracture or subluxation. Prevertebral soft tissues are normal in thickness. IMPRESSION: Negative for acute cervical spine abnormality. All CT scans are performed using dose optimization technique as appropriate and may include automated exposure control or mA/KV adjustment according to patient size.
== END 2018-06-05 01:46 | disposition home or self-care (01) ==
LOC: ER 23:40
DX: S13.4XXA Sprain of ligaments of cervical spine, initial encounter (principal); F17.210 Nicotine dependence, cigarettes, uncomplicated; Y93.72 Activity, wrestling; Y92.009 Unspecified place in unspecified non-institutional (private) residence as the place of occurrence of the external cause; Y99.9 Unspecified external cause status
CPT/HCPCS: 72125; 99284

== ENCOUNTER 2018-10-15 11:54 | Emergency (ER) | payer SELFPAY ==
--- NOTE | 2018-10-15 13:27 | EDPHYS ---
Physician Documentation [facility] Name: Fidel Sy Age: 22 yrs Sex: Male : 1995 Arrival Date: 10/15/2018 Time: 12:00 Bed Waiting Private MD: None, None ED Physician Jordi Sanchez HPI: 10/15 13:30 This 22 yrs old Male presents to ER via Ambulatory with complaints of Ear kb Pain. 13:30 The patient presents with pain, moderate. The complaints affect the left ear. Onset: kb The symptoms/episode began/occurred 3 day(s) ago. Modifying factors: The symptoms are alleviated by nothing, the symptoms are aggravated by nothing. Associated signs and symptoms: The patient has no apparent associated signs or symptoms. Severity of symptoms: At their worst the symptoms were moderate in the emergency department the symptoms are unchanged. The patient has not experienced similar symptoms in the past. The patient has not recently seen a physician. Historical: - Allergies: 12:42 No Known Allergies; la1 - PMHx: 12:42 None; la1 - Immunization history:: Adult Immunizations up to date. - Social history:: Smoking status: Patient/guardian denies using tobacco. - Ebola Screening: : No symptoms or risks identified at this time. ROS: 13:29 Constitutional: Negative for fever, chills, and weight loss, Cardiovascular: Negative kb for chest pain, palpitations, and edema, Respiratory: Negative for shortness of breath, cough, wheezing, and pleuritic chest pain, Abdomen/GI: Negative for abdominal pain, nausea, vomiting, diarrhea, and constipation, MS/Extremity: Negative for injury and deformity, Skin: Negative for injury, rash, and discoloration, Neuro: Negative for headache, weakness, numbness, tingling, and seizure. 13:29 ENT: Positive for ear pain. Exam: 13:29 Constitutional: This is a well developed, well nourished patient who is awake, alert, kb and in no acute distress. Head/Face: Normocephalic, atraumatic. Chest/axilla: Normal chest wall appearance and motion. Nontender with no deformity. No lesions are appreciated. Cardiovascular: Regular rate and rhythm with a normal S1 and S2. No gallops, murmurs, or rubs. Normal PMI, no JVD. No pulse deficits. Respiratory: Lungs have equal breath sounds bilaterally, clear to auscultation and percussion. No rales, rhonchi or wheezes noted. No increased work of breathing, no retractions or nasal flaring. Abdomen/GI: Soft, non-tender, with normal bowel sounds. No distension or tympany. No guarding or rebound. No evidence of tenderness throughout. Skin: Warm, dry with normal turgor. Normal color with no rashes, no lesions, and no evidence of cellulitis. MS/ Extremity: Pulses equal, no cyanosis. Neurovascular intact. Full, normal range of motion. Neuro: Awake and alert, GCS 15, oriented to person, place, time, and situation. Cranial nerves II-XII grossly intact. Motor strength 5/5 in all extremities. Sensory grossly intact. Cerebellar exam normal. Normal gait. 13:29 ENT: External ear(s): are unremarkable, Ear canal(s): are normal, TM's: bulging, on the left, erythema, that is moderate, bilaterally, Nose: is normal, Mouth: is normal, Posterior pharynx: is normal. Vital Signs: 12:42 BP 125 / 88; Pulse 73; Resp 16; Temp 97.3; Pulse Ox 98% on R/A; Weight 72.57 kg; Height la1 5 ft. 6 in. (167.64 cm); 12:42 Body Mass Index 25.82 (72.57 kg, 167.64 cm) la1 MDM: 13:26 Patient medically screened. kb 13:28 Data reviewed: vital signs, nurses notes. Data interpreted: Pulse oximetry: on room air kb is 98 %. Interpretation: normal. Counseling: I had a detailed discussion with the patient and/or guardian regarding: the historical points, exam findings, and any diagnostic results supporting the discharge/admit diagnosis, the need for outpatient follow up, a family practitioner, to return to the emergency department if symptoms worsen or persist or if there are any questions or concerns that arise at home. Administered Medications: No medications were administered Disposition: 10/16 07:29 Co-signature as Attending Physician, Jordi Sanchez MD I agree with the assessment and magdaleno plan of care. Disposition: 10/15/18 13:26 Discharged to Home. Impression: Otitis media, unspecified, left ear. - Condition is Stable. - Discharge Instructions: Otitis Media, Adult, [id number]. - Prescriptions for Amoxicillin 875 mg Oral Tablet - take 1 tablet by ORAL route every 12 hours for 10 days; 20 tablet. - Medication Reconciliation Form, Thank You Letter, Antibiotic Education, Prescription Opioid Use, Work release form form. - Follow up: Emergency Department; When: As needed; Reason: Worsening of condition. Follow up: Private Physician; When: 2 - 3 days; Reason: Recheck today's complaints, Continuance of care, Re-evaluation by your physician. Signatures: Nicole Ashley, FRANCIE-C PARTITION NOTCHER-Jordi Owens MD MD cha Attema, Lee, RN RN la1 Corrections: (The following items were deleted from the chart) 10/15 13:32 13:26 10/15/2018 13:26 Discharged to Home. Impression: Otitis media, unspecified, left la1 ear. Condition is Stable. Forms are Work release form, Medication Reconciliation Form, Thank You Letter, Antibiotic Education, Prescription Opioid Use. Follow up: Emergency Department; When: As needed; Reason: Worsening of condition. Follow up: Private Physician; When: 2 - 3 days; Reason: Recheck today's complaints, Continuance of care, Re-evaluation by your physician. kb
--- NOTE | 2018-10-15 13:27 | ER ---
Nurse's Notes [facility] Name: Fidel Sy Age: 22 yrs Sex: Male : 1995 Arrival Date: 10/15/2018 Time: 12:00 Bed Waiting Private MD: None, None Diagnosis: Otitis media, unspecified, left ear Presentation: 10/15 12:41 Presenting complaint: Patient states: I have been having ear pain and now I cannot hear la1 out of my left ear and can barely hear from my right ear. Transition of care: patient was not received from another setting of care. Onset of symptoms was October 15, 2018. Risk Assessment: Do you want to hurt yourself or someone else? Patient reports no desire to harm self or others. Initial Sepsis Screen: Does the patient meet any 2 criteria? No. Patient's initial sepsis screen is negative. Does the patient have a suspected source of infection? No. Patient's initial sepsis screen is negative. Care prior to arrival: None. 12:41 Method Of Arrival: Ambulatory la1 12:41 Acuity: NIKA 4 la1 Historical: - Allergies: 12:42 No Known Allergies; la1 - PMHx: 12:42 None; la1 - Immunization history:: Adult Immunizations up to date. - Social history:: Smoking status: Patient/guardian denies using tobacco. - Ebola Screening: : No symptoms or risks identified at this time. Screenin:25 Abuse screen: Denies threats or abuse. Nutritional screening: No deficits noted. la1 Tuberculosis screening: No symptoms or risk factors identified. Fall Risk None identified. Assessment: 13:24 General: Appears in no apparent distress. Behavior is calm, cooperative. Pain: la1 Complains of pain in right ear and left ear. Neuro: Level of Consciousness is awake, alert, obeys commands, Oriented to person, place, time, situation. Cardiovascular: Capillary refill < 3 seconds Patient's skin is warm and dry. Respiratory: Airway is patent Respiratory effort is even, unlabored, Respiratory pattern is regular, symmetrical. GI: No signs and/or symptoms were reported involving the gastrointestinal system. : No signs and/or symptoms were reported regarding the genitourinary system. EENT: Reports pain in right ear and left ear. Vital Signs: 12:42 BP 125 / 88; Pulse 73; Resp 16; Temp 97.3; Pulse Ox 98% on R/A; Weight 72.57 kg; Height la1 5 ft. 6 in. (167.64 cm); 12:42 Body Mass Index 25.82 (72.57 kg, 167.64 cm) la1 ED Course: 12:00 Patient arrived in ED. sb2 12:01 None, None is Private Physician. sb2 12:41 Triage completed. la1 12:42 Arm band placed on right wrist. la1 13:22 [facility] kb 13:22 Jordi Sanchez MD is Attending Physician. kb 13:25 Side rails up X 1. la1 13:25 No provider procedures requiring assistance completed. Patient did not have IV access la1 during this emergency room visit. Administered Medications: No medications were administered Outcome: 13:25 Discharged to home ambulatory. la1 13:25 Condition: stable 13:25 Discharge instructions given to patient, Instructed on discharge instructions, follow up and referral plans. medication usage, Demonstrated understanding of instructions, follow-up care, medications, Prescriptions given X 1. 13:26 Discharge ordered by . kb 13:32 Patient left the ED. la1 Signatures: Nicole Ashley FNP-C FNP-Ckb Attema, Lee RN RN la1 Maite Kat sb2
[2018-10-15 16:58] VITALS: BP 125/88; TEMP 97.3; O2SAT 98
== END 2018-10-15 13:32 | disposition home or self-care (01) ==
LOC: ER 11:54
DX: H66.92 Otitis media, unspecified, left ear (principal)
CPT/HCPCS: 99282

== ENCOUNTER 2018-11-23 20:13 | Emergency (ER) | payer SELFPAY ==
[2018-11-23] MEDS ORDERED: IBUPROFEN 200 MG TAB PO ONE (20:57)
[2018-11-23] MEDS ORDERED: HYDROCODONE/APAP 5/325 MG TAB ONE (20:57)
[2018-11-23] MEDS ORDERED: IBUPROFEN 400 MG TAB ONE (20:57)
--- NOTE | 2018-11-23 21:45 | RAD REPORT ---
EXAM DESCRIPTION: RAD - Hand Right 3 View - 11/23/2018 8:57 pm CLINICAL HISTORY: Hand pain, blunt force trauma, pain not further localized COMPARISON: None. FINDINGS: No fracture is identified. There is no dislocation or periosteal reaction noted. No air o r foreign body in the soft tissues. Soft tissue swelling over the dorsum of the hand noted. IMPRESSION: Soft tissue swelling over the dorsum of the hand. No fracture identified.
--- NOTE | 2018-11-23 21:52 | ER ---
Nurse's Notes [facility] Name: Fidel Sy Age: 23 yrs Sex: Male : 1995 Arrival Date: 11/23/2018 Time: 20:14 Bed 20 Private MD: Diagnosis: Contusion of right hand Presentation: 11/23 20:18 Presenting complaint: Patient states: Pain and bruising to right hand after closing aj right hand in car door at 0200 this AM. Transition of care: patient was not received from another setting of care. Onset of symptoms was November 23, 2018. Risk Assessment: Do you want to hurt yourself or someone else? Patient reports no desire to harm self or others. Initial Sepsis Screen: Does the patient meet any 2 criteria? No. Patient's initial sepsis screen is negative. Does the patient have a suspected source of infection? No. Patient's initial sepsis screen is negative. Care prior to arrival: None. 20:18 Method Of Arrival: Ambulatory aj 20:18 Acuity: NIKA 4 aj Triage Assessment: 20:19 General: Appears in no apparent distress. comfortable, Behavior is calm, cooperative, aj appropriate for age. Pain: Complains of pain in right hand. Neuro: Level of Consciousness is awake, alert, obeys commands, Oriented to person, place, time, situation, Appropriate for age. Respiratory: Airway is patent Respiratory effort is even, unlabored, Respiratory pattern is regular, symmetrical. Derm: Skin is intact, is healthy with good turgor, Skin is pink, warm \T\ dry. normal, Reports pain that is 6 out of 10 on a pain scale. Musculoskeletal: Reports pain in right hand. Injury Description: Crush injury sustained to right hand. Historical: - Allergies: 20:19 No Known Allergies; aj - Home Meds: 20:19 None [Active]; aj - PMHx: 20:19 None; aj - PSHx: 20:19 None; aj - Immunization history:: Adult Immunizations up to date. - Social history:: Smoking status: Patient uses tobacco products, smokes one-half pack cigarettes per day. - Ebola Screening: : Patient negative for fever greater than or equal to 101.5 degrees Fahrenheit, and additional compatible Ebola Virus Disease symptoms Patient denies exposure to infectious person Patient denies travel to an Ebola-affected area in the 21 days before illness onset No symptoms or risks identified at this time. Screenin:58 Abuse screen: Denies threats or abuse. Nutritional screening: No deficits noted. jd3 Tuberculosis screening: No symptoms or risk factors identified. Fall Risk Ambulatory Aid- None/Bed Rest/Nurse Assist (0 pts). Gait- Normal/Bed Rest/Wheelchair (0 pts) Mental Status- Oriented to own ability (0 pts). Total [place] Fall Scale indicates No Risk (0-24 pts). Assessment: 20:35 General: Appears in no apparent distress. uncomfortable, Behavior is calm, cooperative, jd3 appropriate for age. Pain: Complains of pain in right hand Quality of pain is described as aching, tender. Neuro: Level of Consciousness is awake, alert, obeys commands, Oriented to person, place, time, situation. Cardiovascular: Capillary refill < 3 seconds Patient's skin is warm and dry. Respiratory: Airway is patent Respiratory effort is even, unlabored, Respiratory pattern is regular, symmetrical. GI: No signs and/or symptoms were reported involving the gastrointestinal system. : No signs and/or symptoms were reported regarding the genitourinary system. EENT: No signs and/or symptoms were reported regarding the EENT system. Derm: Skin is intact, Skin is dry, Skin is normal, Skin temperature is warm Bruising that is dark purple, yellow, on right hand. Musculoskeletal: Circulation, motion, and sensation intact. Range of motion: limited in MCP of right middle finger, MCP of right ring finger and MCP of right little finger Swelling present in right hand. 21:18 Reassessment: Patient appears in no apparent distress at this time. Patient and/or jd3 family updated on plan of care and expected duration. Pain level reassessed. Patient is alert, oriented x 3, equal unlabored respirations, skin warm/dry/pink. Patient states feeling better. 22:52 Reassessment: Patient appears in no apparent distress at this time. Patient and/or jd3 family updated on plan of care and expected duration. Pain level reassessed. Patient is alert, oriented x 3, equal unlabored respirations, skin warm/dry/pink. pt reported understanding of discharge instructions. Vital Signs: 20:19 BP 134 / 88; Pulse 98; Resp 20; Temp 99.1; Pulse Ox 99% on R/A; Weight 74.84 kg; Height aj 5 ft. 6 in. (167.64 cm); 22:52 BP 113 / 58; Pulse 80; Resp 15 S; Pulse Ox 97% on R/A; jd3 20:19 Body Mass Index 26.63 (74.84 kg, 167.64 cm) ED Course: 20:14 Patient arrived in ED. am2 20:19 Triage completed. aj 20:19 Arm band placed on right wrist. Patient placed in an exam room. aj 20:24 Parker Art NP is PHCP. pm1 20:24 Dave Mora MD is Attending Physician. pm1 20:39 Juan Diego Dinero RN is Primary Nurse. jd3 20:59 Patient has correct armband on for positive identification. Bed in low position. Call jd3 light in reach. Side rails up X 1. Adult w/ patient. 21:01 Hand Right 3 View XRAY In Process Unspecified. EDMS 22:39 Orthoglass splint: Volar splint applied on right arm. ar5 22:52 No provider procedures requiring assistance completed. Patient did not have IV access jd3 during this emergency room visit. Administered Medications: 20:49 Drug: [place] 5 mg-325 mg 1 tabs Route: PO; jd3 21:19 Follow up: Response: No adverse reaction jd3 20:49 Drug: Ibuprofen 600 mg Route: PO; jd3 21:19 Follow up: Response: No adverse reaction jd3 Outcome: 21:51 Discharge ordered by MD. pm1 22:53 Discharged to home ambulatory, with family. jd3 22:53 Condition: stable 22:53 Discharge instructions given to patient, family, Instructed on discharge instructions, follow up and referral plans. medication usage, Demonstrated understanding of instructions, follow-up care, medications, Prescriptions given X 2. 22:54 Patient left the ED. jd3 Signatures: Dispatcher [employer] EDMS Candida Qureshi RN RN aj Marinas, Patrick, NP BOWLING PIN REFINISHER pm1 Candida Carter am2 Juan Diego Dinero RN RN jd3 Robles, Autumn ar5 Corrections: (The following items were deleted from the chart) 22:53 22:52 Reassessment: Patient appears in no apparent distress at this time. Patient jd3 and/or family updated on plan of care and expected duration. Pain level reassessed. Patient is alert, oriented x 3, equal unlabored respirations, skin warm/dry/pink. jd3
--- NOTE | 2018-11-23 21:52 | EDPHYS ---
Physician Documentation [facility] Name: Fidel Sy Age: 23 yrs Sex: Male : 1995 Arrival Date: 11/23/2018 Time: 20:14 Bed 20 Private MD: ED Physician Dave Mora HPI: 11/23 21:19 This 23 yrs old Male presents to ER via Ambulatory with complaints of Right pm1 Hand Injury. 21:19 The patient or guardian reports pain, swelling. The complaints affect the right hand. pm1 Context: The problem was sustained outdoors, resulted from a crush injury, by a car door. Onset: The symptoms/episode began/occurred this morning, at 02:00. Modifying factors: The symptoms are alleviated by nothing, the symptoms are aggravated by movement. Associated signs and symptoms: Pertinent negatives: cyanosis distally, decreased sensation distally, numbness distally, tingling distally. Severity of symptoms: in the emergency department the symptoms are unchanged. The patient has not experienced similar symptoms in the past. The patient has not recently seen a physician. Historical: - Allergies: 20:19 No Known Allergies; aj - Home Meds: 20:19 None [Active]; aj - PMHx: 20:19 None; aj - PSHx: 20:19 None; aj - Immunization history:: Adult Immunizations up to date. - Social history:: Smoking status: Patient uses tobacco products, smokes one-half pack cigarettes per day. - Ebola Screening: : Patient negative for fever greater than or equal to 101.5 degrees Fahrenheit, and additional compatible Ebola Virus Disease symptoms Patient denies exposure to infectious person Patient denies travel to an Ebola-affected area in the 21 days before illness onset No symptoms or risks identified at this time. ROS: 21:19 Constitutional: Negative for fever, chills, and weight loss, Eyes: Negative for injury, pm1 pain, redness, and discharge, ENT: Negative for injury, pain, and discharge, Neck: Negative for injury, pain, and swelling, Cardiovascular: Negative for chest pain, palpitations, and edema, Respiratory: Negative for shortness of breath, cough, wheezing, and pleuritic chest pain, Abdomen/GI: Negative for abdominal pain, nausea, vomiting, diarrhea, and constipation, Back: Negative for injury and pain. 21:19 Skin: Negative for injury, rash, and discoloration, Neuro: Negative for headache, weakness, numbness, tingling, and seizure. 21:19 MS/extremity: Positive for pain, swelling, of the right hand. Exam: 21:19 Constitutional: This is a well developed, well nourished patient who is awake, alert, pm1 and in no acute distress. Head/Face: Normocephalic, atraumatic. Chest/axilla: Normal chest wall appearance and motion. Nontender with no deformity. No lesions are appreciated. Cardiovascular: Regular rate and rhythm with a normal S1 and S2. No gallops, murmurs, or rubs. Normal PMI, no JVD. No pulse deficits. Respiratory: Lungs have equal breath sounds bilaterally, clear to auscultation and percussion. No rales, rhonchi or wheezes noted. No increased work of breathing, no retractions or nasal flaring. Back: No spinal tenderness. No costovertebral tenderness. Full range of motion. Skin: Warm, dry with normal turgor. Normal color with no rashes, no lesions, and no evidence of cellulitis. 21:19 Musculoskeletal/extremity: Extremities: grossly normal except: tenderness to right 4th and 5th MCP joint and right 4th PIP, ROM: intact in all extremities, patient able to move fingers of right hand full range of motion, Circulation is intact in all extremities. Sensation intact. 21:19 Neuro: Orientation: is normal, Motor: is normal, moves all fours. Vital Signs: 20:19 BP 134 / 88; Pulse 98; Resp 20; Temp 99.1; Pulse Ox 99% on R/A; Weight 74.84 kg; Height aj 5 ft. 6 in. (167.64 cm); 22:52 BP 113 / 58; Pulse 80; Resp 15 S; Pulse Ox 97% on R/A; jd3 20:19 Body Mass Index 26.63 (74.84 kg, 167.64 cm) MDM: 20:24 Patient medically screened. pm1 21:51 Data reviewed: vital signs. Data interpreted: Pulse oximetry: on room air is 99 %. pm1 Interpretation: normal. Counseling: I had a detailed discussion with the patient and/or guardian regarding: the historical points, exam findings, and any diagnostic results supporting the discharge/admit diagnosis, radiology results, the need for outpatient follow up, to return to the emergency department if symptoms worsen or persist or if there are any questions or concerns that arise at home. 11/23 20:27 Order name: Hand Right 3 View XRAY; Complete Time: 21:49 pm1 11/23 21:52 Order name: Volar Wrist Splint; Complete Time: 22:53 pm1 Administered Medications: 20:49 Drug: [place] 5 mg-325 mg 1 tabs Route: PO; jd3 21:19 Follow up: Response: No adverse reaction jd3 20:49 Drug: Ibuprofen 600 mg Route: PO; jd3 21:19 Follow up: Response: No adverse reaction jd3 Disposition: 11/24 02:08 Co-signature as Attending Physician, Dave Mora MD. dino Disposition: 11/23/18 21:51 Discharged to Home. Impression: Contusion of right hand. - Condition is Stable. - Discharge Instructions: Hand Contusion. - Prescriptions for Naprosyn 500 mg Oral Tablet - take 1 tablet by ORAL route 2 times per day take with food; 30 tablet. Tylenol- Codeine #3 300-30 mg Oral Tablet - take 2 tablet by ORAL route every 6 hours As needed; 30 tablet. - Medication Reconciliation Form, Thank You Letter, Prescription Opioid Use form. - Follow up: Emergency Department; When: As needed; Reason: Worsening of condition. Follow up: Private Physician; When: 2 - 3 days; Reason: Recheck today's complaints, Continuance of care, Re-evaluation by your physician. - Problem is new. - Symptoms have improved. Signatures: Dispatcher [employer] EDCandida Salgado RN RN aj Marinas, Patrick, FISH BAIT PICKER FISH BAIT PICKER pm1 Dave Mora MD MD wa Davies, Jonathon, RN RN jd3 Corrections: (The following items were deleted from the chart) 11/23 22:54 21:51 11/23/2018 21:51 Discharged to Home. Impression: Contusion of right hand. jd3 Condition is Stable. Forms are Medication Reconciliation Form, Thank You Letter, Antibiotic Education, Prescription Opioid Use. Follow up: Emergency Department; When: As needed; Reason: Worsening of condition. Follow up: Private Physician; When: 2 - 3 days; Reason: Recheck today's complaints, Continuance of care, Re-evaluation by your physician. Problem is new. Symptoms have improved. pm1
[2018-11-23 23:41] VITALS: TEMP 99.1
[2018-11-23 23:43] VITALS: BP 113/58; O2SAT 97
== END 2018-11-23 22:54 | disposition home or self-care (01) ==
LOC: ER 20:13
PROC: 2W3CX1Z Immobilization of Right Lower Arm using Splint (ICD-10-PCS; principal; 2018-11-23)
DX: S60.221A Contusion of right hand, initial encounter (principal); W23.0XXA Caught, crushed, jammed, or pinched between moving objects, initial encounter; F17.210 Nicotine dependence, cigarettes, uncomplicated
CPT/HCPCS: 99284

== ENCOUNTER 2019-02-19 17:24 | Emergency (ER) | payer SELFPAY ==
[2019-02-19] MEDS ORDERED: KETOROLAC 30 MG/ML INJ ONE (17:51)
[2019-02-19] MEDS ORDERED: ONDANSETRON 4 MG/2 ML VIAL ONE (17:51)
[2019-02-19 18:07] LABS: Absolute Lymphocytes (CBC) 1.6 K/uL (0.7-4.9); Absolute Neutrophil 7.7 K/uL (1.8-8.0); Basophils % 0.4 % (0-1.3); Hematocrit 44.3 % (39.6-49.0); Lymphocytes % 15.6 % (15.3-44.8); Monocytes % 9.8 % (3.3-12.3); RBC Red Blood Cell Count 4.87 M/uL (4.33-5.43)
--- NOTE | 2019-02-19 18:13 | RAD REPORT ---
EXAM DESCRIPTION: CT - Stone Protocol - 02/19/2019 6:00 pm CLINICAL HISTORY: Flank pain. Abd pain;Flank pain COMPARISON: Stone Protocol dated 08/22/2017 TECHNIQUE: Axial images were obtained without oral or IV contrast. Lack of contrast limits solid org an and vascular assessment. The [id number] spans the entirety of the system partially obscuring uppermost abdomen and lung bases. Coronal reformatted images were obtained and reviewed. All CT scans are performed using dose optimization technique as appropriate and may include automated exposure control or mA/KV adjustment according to patient size. FINDINGS: The lower lung louis are clear. Imaged portions of the liver and spleen show no suspicious findings on non-contrast imaging. The panc reas and adrenal glands are normal. No pathologic lymphadenopathy in the abdomen or pelvis. 2 mm calculus is present in the dependent portion of the urinary bladder. This may have been recently passed from the right genitourinary tract with mild residual hydroureter is present. Punctate calcul us is present in the inferior calyx left kidney. No bowel obstruction, free air, free fluid or abscess. Normal appendix noted. No significant bony abnormality. IMPRESSION: 2 mm calculus is present in the urinary bladder, suspected to been recently passed from the right tract.
[2019-02-19 18:22] LABS: Potassium 3.5 mmol/L (3.5-5.1)
--- NOTE | 2019-02-19 19:14 | EDPHYS ---
Physician Documentation [facility] Name: Fidel Sy Age: 23 yrs Sex: Male : 1995 Arrival Date: 02/19/2019 Time: 17:26 Bed 25 Private MD: None, None ED Physician Deshawn Robles HPI: 02/19 19:11 This 23 yrs old Male presents to ER via Ambulatory with complaints of kb Abdominal Pain. 19:11 The patient complains of pain in the right flank. The pain radiates to the right lower kb quadrant. Onset: The symptoms/episode began/occurred just prior to arrival. Modifying factors: The symptoms are alleviated by nothing. the symptoms are aggravated by palpation/percussion. Associated signs and symptoms: The patient has no apparent associated signs or symptoms. Severity of pain: At its worst the pain was moderate in the emergency department the pain is unchanged. The patient has not experienced similar symptoms in the past. The patient has not recently seen a physician. Historical: - Allergies: 17:29 No Known Allergies; ss - Home Meds: 17:29 None [Active]; ss - PMHx: 17:29 None; ss - PSHx: 17:29 I\T\D; ss - Immunization history:: Adult Immunizations up to date. - Social history:: Smoking status: Patient uses tobacco products, smokes one pack cigarettes per day. - Ebola Screening: : Patient denies exposure to infectious person Patient denies travel to an Ebola-affected area in the 21 days before illness onset. ROS: 19:10 Constitutional: Negative for fever, chills, and weight loss, Cardiovascular: Negative kb for chest pain, palpitations, and edema, Respiratory: Negative for shortness of breath, cough, wheezing, and pleuritic chest pain, Back: Negative for injury and pain, MS/Extremity: Negative for injury and deformity, Skin: Negative for injury, rash, and discoloration, Neuro: Negative for headache, weakness, numbness, tingling, and seizure. 19:10 Abdomen/GI: Positive for abdominal pain. 19:10 : Positive for flank pain. Exam: 19:11 Constitutional: This is a well developed, well nourished patient who is awake, alert, kb and in no acute distress. Head/Face: Normocephalic, atraumatic. Chest/axilla: Normal chest wall appearance and motion. Nontender with no deformity. No lesions are appreciated. Cardiovascular: Regular rate and rhythm with a normal S1 and S2. No gallops, murmurs, or rubs. Normal PMI, no JVD. No pulse deficits. Respiratory: Lungs have equal breath sounds bilaterally, clear to auscultation and percussion. No rales, rhonchi or wheezes noted. No increased work of breathing, no retractions or nasal flaring. Abdomen/GI: Soft, non-tender, with normal bowel sounds. No distension or tympany. No guarding or rebound. No evidence of tenderness throughout. Skin: Warm, dry with normal turgor. Normal color with no rashes, no lesions, and no evidence of cellulitis. MS/ Extremity: Pulses equal, no cyanosis. Neurovascular intact. Full, normal range of motion. Neuro: Awake and alert, GCS 15, oriented to person, place, time, and situation. Cranial nerves II-XII grossly intact. Motor strength 5/5 in all extremities. Sensory grossly intact. Cerebellar exam normal. Normal gait. 19:11 Back: CVA tenderness, that is moderate, is noted on the right. Vital Signs: 17:29 BP 144 / 93; Pulse 108; Resp 20; Temp 97.9(TE); Pulse Ox 100% on R/A; Weight 74.84 kg; ss Height 5 ft. 5 in. (165.10 cm); Pain 10/10; 19:25 BP 132 / 77; Pulse 95; Resp 17; Pulse Ox 99% ; rr5 17:29 Body Mass Index 27.46 (74.84 kg, 165.10 cm) ss MDM: 17:30 Patient medically screened. kb 19:08 Data reviewed: vital signs, nurses notes. Data interpreted: Pulse oximetry: on room air kb is 100 %. Interpretation: normal. Counseling: I had a detailed discussion with the patient and/or guardian regarding: the historical points, exam findings, and any diagnostic results supporting the discharge/admit diagnosis, the need for outpatient follow up, a family practitioner, a urologist. 02/19 17:33 Order name: Basic Metabolic Panel; Complete Time: 18:31 kb 02/19 17:33 Order name: CBC with Diff; Complete Time: 18:16 kb 02/19 17:33 Order name: CT Stone Protocol; Complete Time: 18:16 kb 02/19 19:13 Order name: Urine Dipstick--Ancillary (enter results) ar5 02/19 17:30 Order name: Urine Dipstick-Ancillary (obtain specimen); Complete Time: 19:20 kb 02/19 17:33 Order name: IV Saline Lock; Complete Time: 18:05 kb 02/19 17:33 Order name: Labs collected and sent; Complete Time: 18:05 kb Administered Medications: 18:33 Drug: TORadol 30 mg Route: IVP; Site: left antecubital; aj1 19:25 Follow up: Response: No adverse reaction rr5 18:33 Drug: Zofran 4 mg Route: IVP; Site: left antecubital; aj1 19:25 Follow up: Response: No adverse reaction rr5 Disposition: 02/20 07:30 Co-signature as Attending Physician, Deshawn Robles MD. rn Disposition: 02/19/19 19:13 Discharged to Home. Impression: Calculus of kidney. - Condition is Stable. - Discharge Instructions: Kidney Stones, [id number]. - Prescriptions for Zofran 4 mg Oral Tablet - take 1 tablet by ORAL route every 6 hours As needed; 20 tablet. Diclofenac Sodium 75 mg Oral Tablet, Delayed Release (E.C.) - take 1 tablet by ORAL route 2 times per day As needed; 30 tablet. - Medication Reconciliation Form, Thank You Letter, Antibiotic Education, Prescription Opioid Use form. - Work release form (02/20/19 19:14). ar5 - Follow up: Emergency Department; When: As needed; Reason: Worsening of condition. Follow up: Private Physician; When: 2 - 3 days; Reason: Recheck today's complaints, Continuance of care, Re-evaluation by your physician. Signatures: Dispatcher [employer] Nicole Roldan, BRANDIE AZARP-Valentine Crocker RN RN aj1 Deshawn Robles MD MD rn Smirch, Shelby, RN RN ss Roque, Raymond, RN RN rr5 Jami Man ar5 Corrections: (The following items were deleted from the chart) 02/19 19:31 19:13 02/19/2019 19:13 Discharged to Home. Impression: Calculus of kidney. Condition is rr5 Stable. Forms are Medication Reconciliation Form, Thank You Letter, Antibiotic Education, Prescription Opioid Use. Follow up: Emergency Department; When: As needed; Reason: Worsening of condition. Follow up: Private Physician; When: 2 - 3 days; Reason: Recheck today's complaints, Continuance of care, Re-evaluation by your physician. kb
--- NOTE | 2019-02-19 19:14 | ER ---
Nurse's Notes [facility] Name: Fidel Sy Age: 23 yrs Sex: Male : 1995 Arrival Date: 02/19/2019 Time: 17:26 Bed 25 Private MD: None, None Diagnosis: Calculus of kidney Presentation: 02/19 17:28 Presenting complaint: Patient states: R flank pain with nausea that began suddenly 30 ss mintues ago. Transition of care: patient was not received from another setting of care. Onset of symptoms was February 19, 2019. Risk Assessment: Do you want to hurt yourself or someone else? Patient reports no desire to harm self or others. Initial Sepsis Screen: Does the patient meet any 2 criteria? No. Patient's initial sepsis screen is negative. Does the patient have a suspected source of infection? No. Patient's initial sepsis screen is negative. Care prior to arrival: None. 17:28 Method Of Arrival: Ambulatory ss 17:28 Acuity: NIKA 3 ss Historical: - Allergies: 17:29 No Known Allergies; ss - Home Meds: 17:29 None [Active]; ss - PMHx: 17:29 None; ss - PSHx: 17:29 I\T\D; ss - Immunization history:: Adult Immunizations up to date. - Social history:: Smoking status: Patient uses tobacco products, smokes one pack cigarettes per day. - Ebola Screening: : Patient denies exposure to infectious person Patient denies travel to an Ebola-affected area in the 21 days before illness onset. Screenin:30 Abuse screen: Denies threats or abuse. Denies injuries from another. Nutritional aj1 screening: No deficits noted. Tuberculosis screening: No symptoms or risk factors identified. 19:20 Fall Risk IV access (20 points). Total [place] Fall Scale indicates No Risk (0-24 pts). rr5 Assessment: 17:30 General: Appears uncomfortable, Behavior is calm, cooperative, appropriate for age. aj1 Pain: Complains of pain in anterior aspect of left lateral abdomen and posterior aspect of left lateral abdomen Pain does not radiate. Pain currently is 10 out of 10 on a pain scale. Neuro: Level of Consciousness is awake, alert, obeys commands, Oriented to person, place, time, situation. Cardiovascular: Patient's skin is warm and dry. Respiratory: Airway is patent Respiratory effort is even, unlabored, Respiratory pattern is regular, symmetrical. GI: Abdomen is flat, non-distended, Bowel sounds present X 4 quads. Abd is soft and non tender X 4 quads. : No signs and/or symptoms were reported regarding the genitourinary system. EENT: No signs and/or symptoms were reported regarding the EENT system. Derm: No signs and/or symptoms reported regarding the dermatologic system. Skin is pink, warm \T\ dry. normal. Musculoskeletal: No signs and/or symptoms reported regarding the musculoskeletal system. Circulation, motion, and sensation intact. 18:30 Reassessment: Patient appears in no apparent distress at this time. No changes from aj1 previously documented assessment. Patient and/or family updated on plan of care and expected duration. Pain level reassessed. Patient is alert, oriented x 3, equal unlabored respirations, skin warm/dry/pink. 19:25 Reassessment: Patient appears in no apparent distress at this time. Patient is alert, rr5 oriented x 3, equal unlabored respirations, skin warm/dry/pink. discharge instruction given and explained without complaints made. Patient states feeling better. Patient states symptoms have improved. Vital Signs: 17:29 BP 144 / 93; Pulse 108; Resp 20; Temp 97.9(TE); Pulse Ox 100% on R/A; Weight 74.84 kg; ss Height 5 ft. 5 in. (165.10 cm); Pain 10/10; 19:25 BP 132 / 77; Pulse 95; Resp 17; Pulse Ox 99% ; rr5 17:29 Body Mass Index 27.46 (74.84 kg, 165.10 cm) ED Course: 17:26 Patient arrived in ED. mr 17:27 None, None is Private Physician. mr 17:28 Triage completed. ss 17:29 Arm band placed on right wrist. ss 17:30 Nicole Ashley F[facility]-C is [facility]. kb 17:30 Deshawn Robles MD is Attending Physician. kb 17:30 No provider procedures requiring assistance completed. aj1 17:32 Valentine Rocha, RN is Primary Nurse. aj1 17:35 Pulse ox on. NIBP on. jp3 17:35 Bed in low position. Call light in reach. Side rails up X 1. jp3 17:45 Initial lab(s) drawn, by me, sent to lab. Inserted saline lock: 20 gauge in left 3 antecubital area, using aseptic technique. Blood collected. 17:50 Patient moved to NV via wheelchair. nj 18:00 CT completed. Patient tolerated procedure well. Patient moved back from NV. nj 18:00 CT Stone Protocol In Process Unspecified. EDMS 18:05 Basic Metabolic Panel Sent. jp3 18:05 CBC with Diff Sent. jp3 19:00 Report given to ANNA Myles. 1 19:00 Urine collected: clean catch specimen, clear, mary ann colored, Amount Voided: 50mL. jp3 19:20 Urine Dipstick--Ancillary (enter results) Sent. jp3 19:30 IV discontinued, intact, bleeding controlled, No redness/swelling at site. Pressure rr5 dressing applied. Administered Medications: 18:33 Drug: TORadol 30 mg Route: IVP; Site: left antecubital; [facility] 19:25 Follow up: Response: No adverse reaction rr5 18:33 Drug: Zofran 4 mg Route: IVP; Site: left antecubital; aj 19:25 Follow up: Response: No adverse reaction rr5 Outcome: 19:13 Discharge ordered by MD. kb 19:30 Discharged to home ambulatory. rr5 19:30 Condition: stable 19:30 Discharge instructions given to patient, Instructed on discharge instructions, follow up and referral plans. medication usage, Demonstrated understanding of instructions, follow-up care, medications, Prescriptions given X 1. 19:31 Patient left the ED. rr5 Signatures: Dispatcher [employer] EDAK Nicole Ashley, INSULATION CUTTER-C INSULATION CUTTER-CkValentine Diamond, RN RN aj1 Karlee De Souza Shelby, Adithya Nolan RN, Jacob jp3 Shar Lezama, ANNA RN rr5
[2019-02-19 20:02] LABS: Urine Blood 3+ (NEG); Urine Glucose NEGATIVE (NEG); Urine Protein NEGATIVE (NEG); Urine pH 5.5 (5.0-7.0)
[2019-02-19 20:25] VITALS: TEMP 97.9
[2019-02-19 20:27] VITALS: BP 132/77; O2SAT 99
== END 2019-02-19 19:31 | disposition home or self-care (01) ==
LOC: ER 17:24
DX: N20.0 Calculus of kidney (principal); F17.210 Nicotine dependence, cigarettes, uncomplicated
CPT/HCPCS: 36415; 74176; 76377; 80048; 81003; 85025; 96374; 96375; 99284; J2405

== ENCOUNTER 2019-03-10 20:21 | Emergency (ER) | payer SELFPAY ==
--- NOTE | 2019-03-10 21:56 | ER ---
Nurse's Notes [facility] Name: Fidel Sy Age: 23 yrs Sex: Male : 1995 Arrival Date: 03/10/2019 Time: 20:23 Bed 7 Private MD: None, None Diagnosis: Contusion of unspecified back wall of thorax Presentation: 03/10 20:30 Presenting complaint: Patient states: "I slipped at work and hit my back on a pole.". jd3 Transition of care: patient was not received from another setting of care. Onset of symptoms was March 10, 2019. Risk Assessment: Do you want to hurt yourself or someone else? Patient reports no desire to harm self or others. Initial Sepsis Screen: Does the patient meet any 2 criteria? No. Patient's initial sepsis screen is negative. Does the patient have a suspected source of infection? No. Patient's initial sepsis screen is negative. Care prior to arrival: Medication(s) given: Motrin, 800 mg. 20:30 Method Of Arrival: Ambulatory jd3 20:30 Acuity: NIKA 4 jd3 Historical: - Allergies: 20:35 No Known Allergies; jd3 - Home Meds: 20:35 None [Active]; jd3 - PMHx: 20:35 Kidney stones; jd3 - PSHx: 20:35 I\\T\\D; jd3 - Immunization history:: Adult Immunizations up to date. - Social history:: Smoking status: Patient uses tobacco products, smokes one-half pack cigarettes per day, smokes one pack cigarettes per day. - Ebola Screening: : Patient negative for fever greater than or equal to 101.5 degrees Fahrenheit, and additional compatible Ebola Virus Disease symptoms. Screenin:39 Abuse screen: Denies threats or abuse. Nutritional screening: No deficits noted. jd3 Tuberculosis screening: No symptoms or risk factors identified. Fall Risk None identified. Assessment: 20:36 General: Appears in no apparent distress. uncomfortable, Behavior is calm, cooperative, jd3 appropriate for age. Pain: Complains of pain in back Quality of pain is described as aching, Aggravated by increased activity. Neuro: Level of Consciousness is awake, alert, obeys commands, Oriented to person, place, time, situation, Appropriate for age Denies dizziness, numbness. Cardiovascular: Capillary refill < 3 seconds Patient's skin is warm and dry. Respiratory: Airway is patent Respiratory effort is even, unlabored, Respiratory pattern is regular, symmetrical. GI: No signs and/or symptoms were reported involving the gastrointestinal system. : No signs and/or symptoms were reported regarding the genitourinary system. EENT: No signs and/or symptoms were reported regarding the EENT system. Derm: Skin is intact, Skin is dry, Skin is normal, Skin temperature is warm. Musculoskeletal: Circulation, motion, and sensation intact. Range of motion: intact in all extremities. Vital Signs: 20:35 BP 146 / 80; Pulse 93; Resp 17 S; Temp 98.5(O); Pulse Ox 100% on R/A; Weight 74.84 kg jd3 (R); Height 5 ft. 6 in. (167.64 cm) (R); Pain 6/10; 20:35 Body Mass Index 26.63 (74.84 kg, 167.64 cm) jd3 ED Course: 20:23 Patient arrived in ED. mr 20:24 None, None is Private Physician. mr 20:26 Parker Art, SRI is PHCP. pm1 20:26 Jordi Sanchez MD is Attending Physician. pm1 20:30 Juan Diego Dinero RN is Primary Nurse. jd3 20:33 Triage completed. jd3 20:36 Arm band placed on. jd3 20:39 Patient has correct armband on for positive identification. Placed in gown. Bed in low jd3 position. Call light in reach. Side rails up X 1. 21:20 XRAY Thoracic Spine (Ap/lat) In Process Unspecified. EDMS 22:01 No provider procedures requiring assistance completed. Patient did not have IV access ak1 during this emergency room visit. Administered Medications: No medications were administered Outcome: 21:56 Discharge ordered by . pm1 22:01 Discharged to home ambulatory. ak1 22:01 Condition: good 22:01 Discharge instructions given to patient, Instructed on discharge instructions, follow up and referral plans. no drinking with medication, no driving heavy equipment, medication usage, Demonstrated understanding of instructions, follow-up care, medications, Prescriptions given X 3. 22:01 Patient left the ED. ak1 Signatures: Dispatcher [employer] [facility] Karlee De Souza Amber, RN RN ak1 Parker Art, PLC ENGINEER PLC ENGINEER pm1 Juan Diego Dinero RN RN jd3 Corrections: (The following items were deleted from the chart) 20:39 20:30 Care prior to arrival: None. arturo jd3
--- NOTE | 2019-03-10 21:56 | EDPHYS ---
Physician Documentation [facility] Name: Fidel Sy Age: 23 yrs Sex: Male : 1995 Arrival Date: 03/10/2019 Time: 20:23 Bed 7 Private MD: None, None ED Physician Jordi Sanchez HPI: 03/10 21:55 This 23 yrs old Male presents to ER via Ambulatory with complaints of Fall pm1 Injury, Back Pain. 21:55 Details of fall: The patient fell from an upright position, while standing. Onset: The pm1 symptoms/episode began/occurred today. Associated injuries: The patient sustained upper back injury, pain. Severity of symptoms: in the emergency department the symptoms are actually worse. The patient has not experienced similar symptoms in the past. The patient has not recently seen a physician. Patient was at work and slipped. Landed on a his back against a pipe. No LOC, headache, head injury, or neck pain. No chest pain or shortness of breath. Historical: - Allergies: 20:35 No Known Allergies; jd3 - Home Meds: 20:35 None [Active]; jd3 - PMHx: 20:35 Kidney stones; jd3 - PSHx: 20:35 I\T\D; jd3 - Immunization history:: Adult Immunizations up to date. - Social history:: Smoking status: Patient uses tobacco products, smokes one-half pack cigarettes per day, smokes one pack cigarettes per day. - Ebola Screening: : Patient negative for fever greater than or equal to 101.5 degrees Fahrenheit, and additional compatible Ebola Virus Disease symptoms. ROS: 21:55 Constitutional: Negative for fever, chills, and weight loss, Eyes: Negative for injury, pm1 pain, redness, and discharge, ENT: Negative for injury, pain, and discharge, Neck: Negative for injury, pain, and swelling, Cardiovascular: Negative for chest pain, palpitations, and edema, Respiratory: Negative for shortness of breath, cough, wheezing, and pleuritic chest pain, Abdomen/GI: Negative for abdominal pain, nausea, vomiting, diarrhea, and constipation. 21:55 : Negative for injury, bleeding, discharge, and swelling, MS/Extremity: Negative for injury and deformity, Skin: Negative for injury, rash, and discoloration, Neuro: Negative for headache, weakness, numbness, tingling, and seizure. 21:55 Back: Positive for of the thoracic area, Negative for decreased range of motion, pain with movement, radiated pain. Exam: 21:55 Constitutional: This is a well developed, well nourished patient who is awake, alert, pm1 and in no acute distress. Head/Face: Normocephalic, atraumatic. Eyes: Pupils equal round and reactive to light, extra-ocular motions intact. Lids and lashes normal. Conjunctiva and sclera are non-icteric and not injected. Cornea within normal limits. Periorbital areas with no swelling, redness, or edema. ENT: Nares patent. No nasal discharge, no septal abnormalities noted. Tympanic membranes are normal and external auditory canals are clear. Oropharynx with no redness, swelling, or masses, exudates, or evidence of obstruction, uvula midline. Mucous membranes moist. Neck: Trachea midline, no thyromegaly or masses palpated, and no cervical lymphadenopathy. Supple, full range of motion without nuchal rigidity, or vertebral point tenderness. No Meningismus. Chest/axilla: Normal chest wall appearance and motion. Nontender with no deformity. No lesions are appreciated. Cardiovascular: Regular rate and rhythm with a normal S1 and S2. No gallops, murmurs, or rubs. Normal PMI, no JVD. No pulse deficits. Respiratory: Lungs have equal breath sounds bilaterally, clear to auscultation and percussion. No rales, rhonchi or wheezes noted. No increased work of breathing, no retractions or nasal flaring. Abdomen/GI: Soft, non-tender, with normal bowel sounds. No distension or tympany. No guarding or rebound. No evidence of tenderness throughout. 21:55 Skin: Warm, dry with normal turgor. Normal color with no rashes, no lesions, and no evidence of cellulitis. MS/ Extremity: Pulses equal, no cyanosis. Neurovascular intact. Full, normal range of motion. 21:55 Back: pain, that is mild, of the thoracic area, ROM is painless, normal spinal alignment noted. 21:55 Neuro: Orientation: is normal, Motor: is normal, moves all fours. Vital Signs: 20:35 BP 146 / 80; Pulse 93; Resp 17 S; Temp 98.5(O); Pulse Ox 100% on R/A; Weight 74.84 kg jd3 (R); Height 5 ft. 6 in. (167.64 cm) (R); Pain 6/10; 20:35 Body Mass Index 26.63 (74.84 kg, 167.64 cm) jd3 MDM: 20:26 Patient medically screened. pm1 21:50 Data reviewed: vital signs. Data interpreted: Pulse oximetry: on room air is 100 %. pm1 Interpretation: normal. 21:50 ED course: Negative thoracic spine x-ray for fracture. pm1 21:55 Counseling: I had a detailed discussion with the patient and/or guardian regarding: the pm1 historical points, exam findings, and any diagnostic results supporting the discharge/admit diagnosis, radiology results, the need for outpatient follow up, to return to the emergency department if symptoms worsen or persist or if there are any questions or concerns that arise at home. 03/10 20:53 Order name: XRAY Thoracic Spine (Ap/lat) pm1 Administered Medications: No medications were administered Disposition: 03/10/19 21:56 Discharged to Home. Impression: Contusion of unspecified back wall of thorax. - Condition is Stable. - Discharge Instructions: Contusion. - Prescriptions for Naprosyn 500 mg Oral Tablet - take 1 tablet by ORAL route 2 times per day take with food; 30 tablet. Tylenol- Codeine #3 300-30 mg Oral Tablet - take 2 tablets by ORAL route every 6 hours As needed; 20 tablet. Cyclobenzaprine 10 mg Oral Tablet - take 1 tablet by ORAL route every 8 hours As needed; 30 tablet. - Work release form, Medication Reconciliation Form, Thank You Letter, Antibiotic Education, Prescription Opioid Use form. - Follow up: Emergency Department; When: As needed; Reason: Worsening of condition. Follow up: Private Physician; When: 2 - 3 days; Reason: Recheck today's complaints, Continuance of care, Re-evaluation by your physician. - Problem is new. - Symptoms have improved. Addendum: 03/13/2019 11:13 Co-signature as Attending Physician, Jordi Sanchez MD I agree with the assessment and c cooper plan of care. Signatures: Dispatcher [employer] Jordi Lyons MD MD cha Krenek, Amber RN RN ak1 Parker Art, DIRECTOR OF [facility]IGHB[facility]HOOD [facility]ICE [facility] DIRECTOR OF [facility] pm1 Juan Diego Dinero, RN RN jd3 Corrections: (The following items were deleted from the chart) 03/10 22:01 21:56 03/10/2019 21:56 Discharged to Home. Impression: Contusion of unspecified back ak1 wall of thorax. Condition is Stable. Forms are Medication Reconciliation Form, Thank You Letter, Antibiotic Education, Prescription Opioid Use. Follow up: Emergency Department; When: As needed; Reason: Worsening of condition. Follow up: Private Physician; When: 2 - 3 days; Reason: Recheck today's complaints, Continuance of care, Re-evaluation by your physician. Problem is new. Symptoms have improved. pm1
[2019-03-10 22:08] VITALS: BP 146/80; TEMP 98.5; O2SAT 100
--- NOTE | 2019-03-11 11:42 | RAD REPORT ---
EXAM DESCRIPTION: RAD - Thoracic Spine Ap/Lat - 03/10/2019 9:23 pm CLINICAL HISTORY: PAIN Radiculopathy COMPARISON: No comparisons FINDINGS: The thoracic spine vertebral body heights and disc spaces are largely maintained. No acute compression fracture. No significant malalignment. IMPRESSION: Negative study.
== END 2019-03-10 22:01 | disposition home or self-care (01) ==
LOC: ER 20:21
DX: S20.229A Contusion of unspecified back wall of thorax, initial encounter (principal); W01.198A Fall on same level from slipping, tripping and stumbling with subsequent striking against other object, initial encounter; F17.210 Nicotine dependence, cigarettes, uncomplicated
CPT/HCPCS: 72070; 99283

== ENCOUNTER 2019-04-17 16:13 | Emergency (ER) | payer SELFPAY ==
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
[2019-04-17 17:49] VITALS: BP 127/79; TEMP 98.5; O2SAT 98
== END 2019-04-17 17:09 | disposition home or self-care (01) ==
LOC: ER 16:13
DX: S80.11XA Contusion of right lower leg, initial encounter (principal); V49.40XA Driver injured in collision with unspecified motor vehicles in traffic accident, initial encounter; Z79.82 Long term (current) use of aspirin; I48.91 Unspecified atrial fibrillation; F17.210 Nicotine dependence, cigarettes, uncomplicated
CPT/HCPCS: 99284

== ENCOUNTER 2019-10-01 16:03 | Emergency (ER) | payer SELFPAY ==
--- NOTE | 2019-10-01 17:48 | RAD REPORT ---
EXAM DESCRIPTION: RAD - Chest Pa And Lat (2 Views) - 10/01/2019 5:37 pm CLINICAL HISTORY: COUGH Chest pain. COMPARISON: Chest Single View dated 02/03/2018; Chest Pa And Lat (2 Views) dated 11/04/2016; CHEST PA AND LAT 2 VIEW dated 12/06/2014; CHEST SINGLE VIEW dated 07/18/2012 FINDINGS: The lungs are clear. The heart is normal in size. No displaced fractures. IMPRESSION: No acute or concerning finding suspected.
--- NOTE | 2019-10-01 18:18 | EDPHYS ---
Physician Documentation [facility] Name: Fidel Sy Age: 23 yrs Sex: Male : 1995 Arrival Date: 10/01/2019 Time: 16:06 Bed 25 Private MD: None, None ED Physician Oz Wall HPI: 10/01 16:36 This 23 yrs old Male presents to ER via Ambulatory with complaints of Sore pm1 Throat, Vomiting. 16:36 The patient presents with sore throat. The patient describes throat pain as raw, pm1 scratchy. Onset: The symptoms/episode began/occurred 1 week(s) ago. Severity of symptoms: in the emergency department the symptoms are actually worse. Modifying factors: The symptoms are alleviated by nothing, the symptoms are aggravated by swallowing, Patient's oral intake status: good unaware of sick contact. Associated signs and symptoms: Pertinent positives: flu-like symptoms, shortness of breath Sinus congestion and pain for the past 2 weeks with on and off subjective fever. Post nasal drainage causing his cough. The patient has experienced similar episodes in the past, a few times. The patient has not recently seen a physician. Historical: - Allergies: 16:22 No Known Allergies; aj1 - Home Meds: 16:22 aspirin 81 mg Oral chew 1 tab once daily [Active]; aj1 - PMHx: 16:22 Atrial Fib; Kidney stones; aj1 - PSHx: 16:22 None; aj1 - Immunization history:: Flu vaccine is not up to date. - Social history:: Smoking status: Patient uses tobacco products, smokes one pack cigarettes per day. - Ebola Screening: : Patient denies travel to an Ebola-affected area in the 21 days before illness onset. ROS: 16:36 Constitutional: Negative for fever, chills, and weight loss, Eyes: Negative for injury, pm1 pain, redness, and discharge. 16:36 Neck: Negative for injury, pain, and swelling, Cardiovascular: Negative for chest pain, palpitations, and edema. 16:36 Back: Negative for injury and pain. 16:36 : Negative for injury, bleeding, discharge, and swelling, MS/Extremity: Negative for injury and deformity, Skin: Negative for injury, rash, and discoloration, Neuro: Negative for headache, weakness, numbness, tingling, and seizure. 16:36 ENT: Positive for sinus congestion, sinus pain, sore throat, Negative for ear pain. 16:36 Respiratory: Positive for cough, shortness of breath, Negative for wheezing. 16:36 Abdomen/GI: Positive for vomiting, Negative for abdominal pain, diarrhea, constipation. Exam: 16:36 Constitutional: This is a well developed, well nourished patient who is awake, alert, pm1 and in no acute distress. 16:36 Eyes: Pupils equal round and reactive to light, extra-ocular motions intact. Lids and lashes normal. Conjunctiva and sclera are non-icteric and not injected. Cornea within normal limits. Periorbital areas with no swelling, redness, or edema. ENT: Nares patent. No nasal discharge, no septal abnormalities noted. Tympanic membranes are normal and external auditory canals are clear. Oropharynx with no redness, swelling, or masses, exudates, or evidence of obstruction, uvula midline. Mucous membranes moist. Neck: Trachea midline, no thyromegaly or masses palpated, and no cervical lymphadenopathy. Supple, full range of motion without nuchal rigidity, or vertebral point tenderness. No Meningismus. Chest/axilla: Normal chest wall appearance and motion. Nontender with no deformity. No lesions are appreciated. Cardiovascular: Regular rate and rhythm with a normal S1 and S2. No gallops, murmurs, or rubs. Normal PMI, no JVD. No pulse deficits. Respiratory: Lungs have equal breath sounds bilaterally, clear to auscultation and percussion. No rales, rhonchi or wheezes noted. No increased work of breathing, no retractions or nasal flaring. Abdomen/GI: Soft, non-tender, with normal bowel sounds. No distension or tympany. No guarding or rebound. No evidence of tenderness throughout. Back: No spinal tenderness. No costovertebral tenderness. Full range of motion. Skin: Warm, dry with normal turgor. Normal color with no rashes, no lesions, and no evidence of cellulitis. MS/ Extremity: Pulses equal, no cyanosis. Neurovascular intact. Full, normal range of motion. 16:36 Head/face: Sinus tenderness, that is mild, is located over the right frontal sinus and left frontal sinus. 16:36 Neuro: Orientation: is normal, Motor: is normal, moves all fours. Vital Signs: 16:28 BP 125 / 80; Pulse 106; Resp 20; Temp 98.0; Pulse Ox 98% on R/A; Weight 59.42 kg (R); aj1 Height 5 ft. 7 in. (170.18 cm) (R); 18:30 BP 127 / 78; Pulse 98; Resp 18; Pulse Ox 99% on R/A; wh 16:28 Body Mass Index 20.52 (59.42 kg, 170.18 cm) aj1 MDM: 16:09 Patient medically screened. pm1 18:13 Data reviewed: vital signs. Data interpreted: Pulse oximetry: on room air is 98 %. pm1 Interpretation: normal. Counseling: I had a detailed discussion with the patient and/or guardian regarding: the historical points, exam findings, and any diagnostic results supporting the discharge/admit diagnosis, lab results, radiology results, the need for outpatient follow up, to return to the emergency department if symptoms worsen or persist or if there are any questions or concerns that arise at home. 10/01 16:36 Order name: [place] Screen Profile; Complete Time: 18:13 pm1 10/01 16:36 Order name: Flu; Complete Time: 18:09 pm1 10/01 16:36 Order name: Chest Pa And Lat (2 Views) XRAY; Complete Time: 18:09 pm1 10/01 16:36 Order name: Strep; Complete Time: 18:09 pm1 10/01 18:17 Order name: Throat Culture EDMS Administered Medications: No medications were administered Disposition: 10/02 07:05 Co-signature as Attending Physician, Oz Wall MD Did not see or evaluate patient. ps1 Signing chart for administrative purposes. Not an endorsement of care. . Disposition: 10/01/19 18:17 Discharged to Home. Impression: Acute sinusitis. - Condition is Stable. - Discharge Instructions: Sinusitis, Adult. - Prescriptions for Augmentin 875- 125 mg Oral Tablet - take 1 tablet by ORAL route every 12 hours for 10 days; 20 tablet. Prednisone 20 mg Oral Tablet - take 1 tablet by ORAL route every 12 hours for 5 days; 10 tablet. Guaifenesin AC 10- 100 mg/5 mL Oral Liquid - take 10 milliliter by ORAL route every 4 hours As needed; 240 milliliter. - Medication Reconciliation Form, Thank You Letter, Antibiotic Education, Prescription Opioid Use, Work release form, Family Work Release form. - Follow up: Emergency Department; When: 2 - 3 days; Reason: Recheck today's complaints, Continuance of care, Re-evaluation by your physician. - Problem is new. - Symptoms have improved. Signatures: Dispatcher [employer] EDMS Valentine Rocha RN RN aj1 Parker Art, MACHINE CAGE MAKER MACHINE CAGE MAKER pm1 Afsaneh Quiroga Phillip, MD MD ps1 Corrections: (The following items were deleted from the chart) 10/01 18:47 18:17 10/01/2019 18:17 Discharged to Home. Impression: Acute sinusitis. Condition is wh Stable. Forms are Medication Reconciliation Form, Thank You Letter, Antibiotic Education, Prescription Opioid Use. Follow up: Emergency Department; When: 2 - 3 days; Reason: Recheck today's complaints, Continuance of care, Re-evaluation by your physician. Problem is new. Symptoms have improved. pm1
--- NOTE | 2019-10-01 18:18 | ER ---
Nurse's Notes [facility] Name: Fidel Sy Age: 23 yrs Sex: Male : 1995 Arrival Date: 10/01/2019 Time: 16:06 Bed 25 Private MD: None, None Diagnosis: Acute sinusitis Presentation: 10/01 16:20 Presenting complaint: Patient states: Sore throat, vomiting, runny nose, malaise, cough aj1 and fever for the past week. Transition of care: patient was not received from another setting of care. Onset of symptoms was October 01, 2019. Risk Assessment: Do you want to hurt yourself or someone else? Patient reports no desire to harm self or others. Initial Sepsis Screen: Does the patient meet any 2 criteria? No. Patient's initial sepsis screen is negative. Does the patient have a suspected source of infection? No. Patient's initial sepsis screen is negative. Care prior to arrival: None. 16:20 Method Of Arrival: Ambulatory aj1 16:20 Acuity: NIKA 4 aj1 Triage Assessment: 16:28 General: Appears in no apparent distress. comfortable, Behavior is calm, cooperative, aj1 appropriate for age. Pain: Complains of pain in left aspect of posterior pharynx and right aspect of posterior pharynx. EENT: Throat is reddened bilaterally Reports nasal congestion nasal discharge sore throat. Historical: - Allergies: 16:22 No Known Allergies; aj1 - Home Meds: 16:22 aspirin 81 mg Oral chew 1 tab once daily [Active]; aj1 - PMHx: 16:22 Atrial Fib; Kidney stones; aj1 - PSHx: 16:22 None; aj1 - Immunization history:: Flu vaccine is not up to date. - Social history:: Smoking status: Patient uses tobacco products, smokes one pack cigarettes per day. - Ebola Screening: : Patient denies travel to an Ebola-affected area in the 21 days before illness onset. Screenin:30 Abuse screen: Denies threats or abuse. Denies injuries from another. Nutritional aj1 screening: No deficits noted. Tuberculosis screening: No symptoms or risk factors identified. 18:32 Fall Risk None identified. aj1 Assessment: 16:30 General: Appears in no apparent distress. comfortable, Behavior is calm, cooperative, aj1 appropriate for age. Pain: Complains of pain in right aspect of posterior pharynx and left aspect of posterior pharynx. Neuro: Level of Consciousness is awake, alert, obeys commands, Oriented to person, place, time, situation. Cardiovascular: Patient's skin is warm and dry. Respiratory: Airway is patent Respiratory effort is even, unlabored, Respiratory pattern is regular, symmetrical, Breath sounds are clear bilaterally. GI: No signs and/or symptoms were reported involving the gastrointestinal system. : No signs and/or symptoms were reported regarding the genitourinary system. EENT: Throat is reddened bilaterally Reports nasal congestion nasal discharge. Derm: No signs and/or symptoms reported regarding the dermatologic system. Skin is pink, warm \T\ dry. normal. Musculoskeletal: No signs and/or symptoms reported regarding the musculoskeletal system. Circulation, motion, and sensation intact. 17:30 Reassessment: Patient appears in no apparent distress at this time. No changes from [facility] previously documented assessment. Patient and/or family updated on plan of care and expected duration. Pain level reassessed. Patient is alert, oriented x 3, equal unlabored respirations, skin warm/dry/pink. 18:31 Reassessment: Patient appears in no apparent distress at this time. No changes from aj1 previously documented assessment. Patient and/or family updated on plan of care and expected duration. Pain level reassessed. Patient is alert, oriented x 3, equal unlabored respirations, skin warm/dry/pink. Vital Signs: 16:28 BP 125 / 80; Pulse 106; Resp 20; Temp 98.0; Pulse Ox 98% on R/A; Weight 59.42 kg (R); aj1 Height 5 ft. 7 in. (170.18 cm) (R); 18:30 BP 127 / 78; Pulse 98; Resp 18; Pulse Ox 99% on R/A; wh 16:28 Body Mass Index 20.52 (59.42 kg, 170.18 cm) aj1 ED Course: 16:06 Patient arrived in ED. mr 16:07 None, None is Private Physician. mr 16:09 [facility]. pm1 16:09 Oz Wall MD is Attending Physician. pm1 16:20 Valentine Rocha RN is Primary Nurse. aj1 16:21 Triage completed. aj1 16:28 Arm band placed on Patient placed in an exam room. aj1 16:30 Patient has correct armband on for positive identification. Bed in low position. Call aj1 light in reach. Side rails up X 1. 16:30 No provider procedures requiring assistance completed. aj1 17:12 Initial lab(s) drawn, by me, Flu and/or RSV swab sent to lab. Strep swab sent to lab. jb Inserted saline lock: 22 gauge in right antecubital area, using aseptic technique. Blood collected. 17:12 Strep Sent. jb1 17:12 Flu Sent. jb1 17:12 [place] Screen Profile Sent. jb1 17:38 Chest Pa And Lat (2 Views) XRAY In Process Unspecified. EDMS 18:46 IV discontinued, intact, bleeding controlled, No redness/swelling at site. Administered Medications: No medications were administered Outcome: 18:17 Discharge ordered by MD. pm1 18:44 Discharged to home ambulatory, with family. 18:44 Condition: stable 18:44 Discharge instructions given to patient, family, Instructed on discharge instructions, follow up and referral plans. medication usage, POC SINUSITIS Demonstrated understanding of instructions, follow-up care, medications, POC Prescriptions given X 3. 18:47 Patient left the ED. Signatures: Dispatcher [employer] EDMS Richy Dill jb1 Valentine Rocha, ANNA RN aj1 Karlee De Souza Patrick, PHD INTERN PHD INTERN pm1 Afsaneh Quiroga Corrections: (The following items were deleted from the chart) 18:39 16:30 Patient did not have IV access during this emergency room visit. aj1 aj1
[2019-10-01 22:44] VITALS: TEMP 98
[2019-10-01 22:45] VITALS: BP 127/78; O2SAT 99
== END 2019-10-01 18:47 | disposition home or self-care (01) ==
LOC: ER 16:03
DX: J01.90 Acute sinusitis, unspecified (principal); I48.91 Unspecified atrial fibrillation; F17.210 Nicotine dependence, cigarettes, uncomplicated; Z79.82 Long term (current) use of aspirin
CPT/HCPCS: 36415; 71046; 86308; 87070; 87081; 87804; 99284

== ENCOUNTER 2021-10-06 18:20 | Emergency (ER) | payer SELFPAY ==
[2021-10-06] MEDS ORDERED: MORPHINE 2 MG/ML SYR ONE (19:50)
[2021-10-06] MEDS ORDERED: FAMOTIDINE 20 MG/2 ML VIAL IV ONE (19:50)
[2021-10-06] MEDS ORDERED: NA CHLORIDE 0.9% 1,000 ML ONE (19:50)
[2021-10-06] MEDS ORDERED: ONDANSETRON 4 MG/2 ML VIAL ONE (19:50)
[2021-10-06 20:27] LABS: Absolute Lymphocytes (CBC) 1.2 K/uL (0.7-4.9); Basophils % 0.2 % (0-1.3); Hematocrit 47.5 % (39.6-49.0); Lymphocytes % 11.4 % (15.3-44.8); MPV 8.9 fL (7.6-11.3)
--- NOTE | 2021-10-06 20:43 | RAD REPORT ---
EXAM DESCRIPTION: CT - Abdomen Pelvis W Contrast - 10/06/2021 8:27 pm CLINICAL HISTORY: abd pain COMPARISON: Abdomen Pelvis W Contrast dated 09/02/2016; CT ABD PELVIS W CONTRAST dated 07/18/2012 TECHNIQUE: Biphasic, helical CT imaging of the abdomen and pelvis was performed following 100 ml non -ionic IV contrast. No oral contrast administered. All CT scans are performed using dose optimization technique as appropriate and may include automated exposure control or mA/KV adjustment according to patient size. FINDINGS: No suspicious findings in the lung bases. The liver, spleen, and pancreas show no suspicious findings. Gallbladder and biliary tree are also wi thout suspicious finding. Symmetric renal function is seen with no hydronephrosis or suspicious renal mass. No pyelonephritis o r acute parenchymal process. No bladder abnormalities. No adrenal abnormalities. No gastric dilatation or gastric wall thickening. Stomach is distended by air and fluid. Gastric outl et obstruction is not suspected. Duodenum is normal in diameter. Small bowel obstruction is not suspe cted. There are multiple distended but nondilated fluid-filled small bowel loops. Numerous mesenteric lymph nodes are seen in the central abdomen. No bulky lymphadenopathy. The appendix is prominent but there is air seen within the lumen and no periappendiceal inflammatory stranding is present. Colon i s not dilated. Acute appendicitis is not suspected. No free air, free fluid or pneumatosis. No mass or bulky lymphadenopathy. No suspicious bony findings. IMPRESSION: Prominent fluid-filled small bowel loops and multiple mesenteric lymph nodes present. Ga s or enteritis is suspected. No convincing evidence for appendicitis or other surgically emergent process.
--- NOTE | 2021-10-06 21:05 | RAD REPORT ---
EXAM DESCRIPTION: RAD - Chest Single View - 10/06/2021 8:56 pm CLINICAL HISTORY: a fib COMPARISON: September 2019 TECHNIQUE: AP portable chest image was obtained 10/06/2021 8:56 pm . FINDINGS: Lungs are clear. Heart and vasculature are normal. No measurable pleural effusion and no p neumothorax. No acute bony abnormality seen. No acute aortic findings suspected. IMPRESSION: No acute cardiopulmonary process. No significant change from comparison study.
[2021-10-06] MEDS ORDERED: metroNIDAZOLE 500 MG TABLET ONE (21:20)
[2021-10-06] MEDS ORDERED: CIPROFLOXACIN HCL 500 MG TAB ONE (21:21)
[2021-10-06 21:45] LABS: ALT/SGPT 18 U/L (12-78); AST/SGOT 17 U/L (15-37); Albumin 3.4 g/dL (3.4-5.0); Alkaline Phosphatase 71 U/L (45-117); BUN Blood Urea Nitrogen 12 mg/dL (7-18); Bicarbonate 29 mmol/L (21-32); Bilirubin Direct 0.1 mg/dL (0-0.2); Bilirubin Total 0.4 mg/dL (0.2-1.0); Glucose Level 94 mg/dL (74-106); Lipase 43 U/L (73-393); Potassium 3.8 mmol/L (3.5-5.1); Protein, Total 7.2 g/dL (6.4-8.2); Sodium Level 141 mmol/L (136-145); Troponin (Emerg Dept Use Only) < 0.02 ng/mL (0.0-0.045)
--- NOTE | 2021-10-06 21:48 | ER ---
Nurse's Notes [facility] Name: Fidel Sy Age: 25 yrs Sex: Male : 1995 Arrival Date: 10/06/2021 Time: 18:23 Bed 6 Private MD: Diagnosis: Abdominal tenderness-Enteritis;Nonspecific mesenteric lymphadenitis Presentation: 10/06 18:30 Chief complaint: Patient states: RLQ pain and vomiting x 2 days ago. Pt also reports aa5 diarrhea 2 days ago but none since then. Pt also c/o left shoulder pain x 3 days ago. Coronavirus screen: nausea, vomiting. Ebola Screen: No symptoms or risks identified at this time. Initial Sepsis Screen: Does the patient meet any 2 criteria? HR > 90 bpm. Does the patient have a suspected source of infection? No. Patient's initial sepsis screen is negative. Risk Assessment: Do you want to hurt yourself or someone else? Patient reports no desire to harm self or others. Onset of symptoms was September 2021. 18:30 Method Of Arrival: Ambulatory aa5 18:30 Acuity: NIKA 3 aa5 Historical: - Allergies: 18:31 No Known Allergies; aa5 - PMHx: 18:31 Atrial Fib; Kidney stones; aa5 - PSHx: 18:32 hand; aa5 - Immunization history:: Client reports having NOT received the Covid vaccine. - Social history:: Smoking status: Patient reports the use of cigarette tobacco products, smokes one pack cigarettes per day. Screenin:47 Abuse screen: Denies threats or abuse. Denies injuries from another. Nutritional lp1 screening: No deficits noted. Tuberculosis screening: No symptoms or risk factors identified. Fall Risk None identified. Assessment: 19:47 General: Appears uncomfortable, Behavior is appropriate for age. Pain: Complains of lp1 pain in right lower quadrant, left posterior shoulder Pain does not radiate. Pain currently is 7 out of 10 on a pain scale. Quality of pain is described as sharp. Neuro: No deficits noted. Cardiovascular: Patient's skin is warm and dry. Respiratory: Respiratory effort is even, unlabored. GI: Abdomen is non-distended, Bowel sounds present X 4 quads. Abdomen is tender to palpation in right lower quadrant Reports diarrhea, nausea, vomiting. : No signs and/or symptoms were reported regarding the genitourinary system. EENT: No signs and/or symptoms were reported regarding the EENT system. Derm: Skin is pink, warm \T\ dry. Musculoskeletal: No deficits noted. Vital Signs: 18:30 BP 123 / 87; Pulse 105; Resp 18 S; Temp 97.9(O); Pulse Ox 100% on R/A; aa5 21:25 BP 121 / 76; Pulse 98; Resp 18; Temp 98.0(O); Pulse Ox 100% on R/A; Pain 4/10; kc4 22:01 BP 128 / 78; Pulse 88; Resp 18; Temp 98.6(O); Pulse Ox 100% on R/A; Pain 0/10; kc4 ED Course: 18:23 Patient arrived in ED. rg4 18:30 Arm band placed on. aa5 18:31 Triage completed. aa5 19:38 Jordi Sanchez MD is Attending Physician. magdaleno 19:48 Shyanne England, RN is Primary Nurse. lp1 19:48 Patient has correct armband on for positive identification. Placed in gown. lp1 20:26 Abdomen In Process Unspecified. EDMS 20:54 Lipase Sent. kc4 20:54 Liver (Hepatic) Function Sent. kc4 20:54 Troponin (Emerg Dept Use Only) Sent. kc4 20:54 Basic Metabolic Panel Sent. kc4 20:56 Chest Single View In Process Unspecified. EDMS 21:47 Faraz Jack MD is Referral Physician. magdaleno 21:59 No provider procedures requiring assistance completed. IV discontinued, intact, kc4 bleeding controlled, No redness/swelling at site. Pressure dressing applied. Administered Medications: 20:00 Drug: NS 0.9% 1000 ml Route: IV; Rate: 1 bolus; Site: left antecubital; lp1 22:03 Follow up: IV Status: Completed infusion kc4 20:00 Drug: Pepcid (famotidine) 20 mg Route: IVP; Site: left antecubital; lp1 21:33 Follow up: Response: No adverse reaction kc4 20:00 Drug: morphine 2 mg Route: IVP; Site: left antecubital; lp1 21:34 Follow up: Response: Pain is decreased kc4 20:00 Drug: Zofran (Ondansetron) 4 mg Route: IVP; Site: left antecubital; lp1 21:33 Follow up: Response: No adverse reaction kc4 21:24 Drug: Cipro (ciprofloxacin) 500 mg Route: PO; kc4 21:34 Follow up: Response: No adverse reaction kc4 21:24 Drug: Flagyl (metroNIDAZOLE) 500 mg Route: PO; kc4 21:34 Follow up: Response: No adverse reaction kc4 Outcome: 21:47 Discharge ordered by MD. dolan 21:59 Discharged to home ambulatory. kc4 21:59 Condition: improved 21:59 Discharge instructions given to patient, Instructed on discharge instructions, follow up and referral plans. Demonstrated understanding of instructions, follow-up care, medications, Prescriptions given X 4. 22:03 Patient left the ED. kc4 Signatures: Dispatcher [employer] EDMS Jordi Sanchez MD MD cha Calderon, Audri, RN RN aa5 Shyanne England RN RN lp1 Melvi Sutton4 Carole Chau kc4
--- NOTE | 2021-10-06 21:48 | EDPHYS ---
Physician Documentation [facility] Name: Fidel Sy Age: 25 yrs Sex: Male : 1995 Arrival Date: 10/06/2021 Time: 18:23 Bed 6 Private MD: LANE Physician Jordi Sanchez HPI: 10/06 19:43 This 25 yrs old Male presents to ER via Ambulatory with complaints of magdaleno Abdominal Pain, Shoulder Pain. 19:43 The patient or guardian complains of pain, that is acute. left shoulder. Context: The magdaleno problem was sustained at an unknown site, resulted from an unknown reason. Onset: The symptoms/episode began/occurred 2 day(s) ago. Historical: - Allergies: 18:31 No Known Allergies; aa5 - PMHx: 18:31 Atrial Fib; Kidney stones; aa5 - PSHx: 18:32 hand; aa5 - Immunization history:: Client reports having NOT received the Covid vaccine. - Social history:: Smoking status: Patient reports the use of cigarette tobacco products, smokes one pack cigarettes per day. ROS: 19:45 Constitutional: Negative for fever, chills, and weight loss, Eyes: Negative for injury, magdaleno pain, redness, and discharge, ENT: Negative for injury, pain, and discharge, Neck: Negative for injury, pain, and swelling, Cardiovascular: Negative for chest pain, palpitations, and edema, Respiratory: Negative for shortness of breath, cough, wheezing, and pleuritic chest pain, Back: Negative for injury and pain, : Negative for injury, bleeding, discharge, and swelling, MS/Extremity: Negative for injury and deformity, Skin: Negative for injury, rash, and discoloration, Neuro: Negative for headache, weakness, numbness, tingling, and seizure, Psych: Negative for depression, anxiety, suicide ideation, homicidal ideation, and hallucinations, Allergy/Immunology: Negative for hives, rash, and allergies, Endocrine: Negative for neck swelling, polydipsia, polyuria, polyphagia, and marked weight changes, Hematologic/Lymphatic: Negative for swollen nodes, abnormal bleeding, and unusual bruising. 19:45 Abdomen/GI: Positive for abdominal pain, of the right lower quadrant. Exam: 19:45 Constitutional: This is a well developed, well nourished patient who is awake, alert, magdaleno and in no acute distress. Head/Face: Normocephalic, atraumatic. Eyes: Pupils equal round and reactive to light, extra-ocular motions intact. Lids and lashes normal. Conjunctiva and sclera are non-icteric and not injected. Cornea within normal limits. Periorbital areas with no swelling, redness, or edema. ENT: Nares patent. No nasal discharge, no septal abnormalities noted. Tympanic membranes are normal and external auditory canals are clear. Oropharynx with no redness, swelling, or masses, exudates, or evidence of obstruction, uvula midline. Mucous membranes moist. Neck: Trachea midline, no thyromegaly or masses palpated, and no cervical lymphadenopathy. Supple, full range of motion without nuchal rigidity, or vertebral point tenderness. No Meningismus. Chest/axilla: Normal chest wall appearance and motion. Nontender with no deformity. No lesions are appreciated. Cardiovascular: Regular rate and rhythm with a normal S1 and S2. No gallops, murmurs, or rubs. Normal PMI, no JVD. No pulse deficits. Respiratory: Lungs have equal breath sounds bilaterally, clear to auscultation and percussion. No rales, rhonchi or wheezes noted. No increased work of breathing, no retractions or nasal flaring. Abdomen/GI: Soft, non-tender, with normal bowel sounds. No distension or tympany. No guarding or rebound. No evidence of tenderness throughout. Back: No spinal tenderness. No costovertebral tenderness. Full range of motion. Male : Normal genitalia with no discharge or lesions. Skin: Warm, dry with normal turgor. Normal color with no rashes, no lesions, and no evidence of cellulitis. MS/ Extremity: Pulses equal, no cyanosis. Neurovascular intact. Full, normal range of motion. Neuro: Awake and alert, GCS 15, oriented to person, place, time, and situation. Cranial nerves II-XII grossly intact. Motor strength 5/5 in all extremities. Sensory grossly intact. Cerebellar exam normal. Normal gait. Psych: Awake, alert, with orientation to person, place and time. Behavior, mood, and affect are within normal limits. 20:09 ECG was reviewed by the Attending Physician. [facility] Vital Signs: 18:30 BP 123 / 87; Pulse 105; Resp 18 S; Temp 97.9(O); Pulse Ox 100% on R/A; aa5 21:25 BP 121 / 76; Pulse 98; Resp 18; Temp 98.0(O); Pulse Ox 100% on R/A; Pain 4/10; kc4 22:01 BP 128 / 78; Pulse 88; Resp 18; Temp 98.6(O); Pulse Ox 100% on R/A; Pain 0/10; kc4 MDM: 19:38 Patient medically screened. [facility] 19:46 Differential diagnosis: appendicitis, bowel obstruction, cholecystitis, Cholelithiasis, magdaleno diverticulitis, gastritis, non-specific abd pain, pancreatitis, Pyelonephritis, Ureterolithiasis. Data reviewed: vital signs, nurses notes, lab test result(s), EKG, radiologic studies, CT scan, plain films. Data interpreted: frankfurter inspector: rate is 105 beats/min, rhythm is regular, Pulse oximetry: on room air is 100 %. Test interpretation: by ED physician or midlevel provider: ECG, plain radiologic studies. Counseling: I had a detailed discussion with the patient and/or guardian regarding: the historical points, exam findings, and any diagnostic results supporting the discharge/admit diagnosis, lab results, radiology results, the need for outpatient follow up, for definitive care, a family practitioner. 10/06 20:20 Order name: Basic Metabolic Panel; Complete Time: 21:47 [facility] 10/06 20:20 Order name: Liver (Hepatic) Function; Complete Time: 21:47 [facility] 10/06 20:20 Order name: Troponin (Emerg Dept Use Only); Complete Time: 21:47 [facility] 10/06 20:20 Order name: Lipase; Complete Time: 21:47 [facility] 10/06 20:20 Order name: CBC with Automated Diff; Complete Time: 21:06 [facility] 10/06 20:20 Order name: Abdomen ; Complete Time: 21:06 [facility] 10/06 19:43 Order name: IV Saline Lock; Complete Time: 20:01 [facility] 10/06 19:43 Order name: Labs collected and sent; Complete Time: 20:01 [facility] 10/06 19:44 Order name: EKG; Complete Time: 23:16 [facility] 10/06 19:44 Order name: EKG - Nurse/Tech; Complete Time: 20:00 [facility] 10/06 20:20 Order name: Chest Single View; Complete Time: 21:06 EDMS EC:09 Rate is 103 beats/min. Rhythm is regular. QRS [place] is Normal. TN interval is normal. magdaleno QRS interval is normal. QT interval is normal. No Q waves. T waves are Normal. No ST changes noted. Clinical impression: NSR w/ Non-specific ST/T Changes and No evidence of ischemia. Interpreted by me. Reviewed by me. Administered Medications: 20:00 Drug: NS 0.9% 1000 ml Route: IV; Rate: 1 bolus; Site: left antecubital; lp1 22:03 Follow up: IV Status: Completed infusion kc4 20:00 Drug: Pepcid (famotidine) 20 mg Route: IVP; Site: left antecubital; lp1 21:33 Follow up: Response: No adverse reaction kc4 20:00 Drug: morphine 2 mg Route: IVP; Site: left antecubital; lp1 21:34 Follow up: Response: Pain is decreased kc4 20:00 Drug: Zofran (Ondansetron) 4 mg Route: IVP; Site: left antecubital; lp1 21:33 Follow up: Response: No adverse reaction kc4 21:24 Drug: Cipro (ciprofloxacin) 500 mg Route: PO; kc4 21:34 Follow up: Response: No adverse reaction kc4 21:24 Drug: Flagyl (metroNIDAZOLE) 500 mg Route: PO; kc4 21:34 Follow up: Response: No adverse reaction kc4 Disposition Summary: 10/06/21 21:47 Discharge Ordered Location: Home magdaleno Problem: new magdaleno Symptoms: have improved magdaleno Condition: Stable magdaleno Diagnosis - Abdominal tenderness - Enteritis magdaleno - Nonspecific mesenteric lymphadenitis magdaleno Followup: magdaleno - With: Private Physician - When: 2 - 3 days - Reason: Recheck today's complaints, Continuance of care, Re-evaluation by your physician Followup: magdaleno - With: - When: 2 - 3 days - Reason: Recheck today's complaints, Re-evaluation by your physician Discharge Instructions: - Discharge Summary Sheet magdaleno - Abdominal Pain, Adult magdaleno - Abdominal Pain, Adult, [id number] magdaleno - Mesenteric Adenitis, Adult magdaleno Forms: - Medication Reconciliation Form magdaleno - Thank You Letter magdaleno - Antibiotic Education magdaleno - Prescription Opioid Use magdaleno Prescriptions: - Zofran 4 mg Oral Tablet - take 1 tablet by ORAL route every 12 hours As needed; 20 tablet; Refills: 0, [facility] Product Selection Permitted - Flagyl 500 mg Oral Tablet - take 1 tablet by ORAL route every 8 hours for 5 days; 15 tablet; Refills: 0, [facility] Product Selection Permitted - dicyclomine 20 mg Oral Tablet - take 1 tablet by ORAL route 4 times per day; 28 tablet; Refills: 0, Product [facility] Selection Permitted - Cipro 500 mg Oral Tablet - take 1 tablet by ORAL route every 12 hours for 5 days; 10 tablet; Refills: 0, [facility] Product Selection Permitted Signatures: Dispatcher [employer] Jordi Lyons MD MD cha Calderon, Audri RN RN aa5 Shyanen England RN RN lp1 Carole Chau [facility]
[2021-10-06 22:14] VITALS: O2SAT 100
[2021-10-06 22:16] VITALS: BP 128/78; TEMP 98.6
--- NOTE | 2021-10-07 08:03 | EKG ---
Test Date: 2021-10-06 Test Time: 20:01:16 Operations Leader: OSMIN MEASUREMENT RESULTS: Intervals: Rate: 103 MT: 140 QRSD: 94 QT: 332 QTc: 434 [place]: P: 71 MT: 140 QRS: 81 T: 63 INTERPRETIVE STATEMENTS: Sinus tachycardia Otherwise normal ECG Compared to ECG 02/03/2018 22:01:59 Sinus rhythm no longer present Incomplete right bundle-branch block no longer present Electronically Signed On 10-07-21 08:03:04 SOLID PLASTERER by Grant Lopez
== END 2021-10-06 22:03 | disposition home or self-care (01) ==
LOC: ER 18:20
DX: K52.9 Noninfective gastroenteritis and colitis, unspecified (principal); I88.0 Nonspecific mesenteric lymphadenitis; F17.210 Nicotine dependence, cigarettes, uncomplicated
CPT/HCPCS: 36415; 71045; 74177; 80048; 80076; 82565; 83690; 84484; 85025; 93005; 96361; 96374; 96375; 99284; J2270; J2405; J7030; Q9967